=== PATIENT | male | born 1975 | race African-American/Black ===

== ENCOUNTER 2017-02-26 13:35 | Inpatient (IN) | payer OTHER ==
[2017-02-26 15:01] VITALS: BMI 32.6
--- NOTE | 2017-02-26 16:28 | HP ---
CIWA Score - CIWA Score Nausea/Vomitin-No Nausea/No Vomiting Muscle Tremors: 4-Moderate,w/Arms Extend Anxiety: 3 Agitation: 3 Paroxysmal Sweats: 1-Minimal Palms Moist Orientation: 0-Oriented Tacttile Disturbances: 0-None Auditory Disturbances: 0-None Visual Disturbances: 0-None Headache: 3-Moderate CIWA-Ar Total Score: 14 Admission ROS BHS - HPI Chief Complaint: Alcohol withdrawal sx Allergies/Adverse Reactions: Allergies Allergy/AdvReac Type Severity Reaction Status Date / Time No Known Allergies Allergy Verified 02/26/17 16:16 History of Present Illness: 41 years old with a long history of alcohol, cocaine, marijuana and nicotine dependence is admitted for detox. Patient denies past history of alcohol detox and significant history of sobriety. Patient reports medical history of GERD and depression. Denies suicidal ideation at this time. Exam Limitations: No Limitations - Ebola screening Have you traveled outside of the country in the last 21 days: No Have you had contact with anyone from an Ebola affected area: No Have you been sick,other than usual withdrawal symptoms: No Do you have a fever: No - Review of Systems Constitutional: Malaise, Changes in sleep EENT: reports: No Symptoms Reported Respiratory: reports: No Symptoms reported Cardiac: reports: No Symptoms Reported GI: reports: No Symptoms Reported, Diarrhea (x 2) : reports: No Symptoms Reported Musculoskeletal: reports: No Symptoms Reported Integumentary: reports: [place] Neuro: reports: No Symptoms reported Endocrine: reports: No Symptoms Reported Hematology: reports: No Symptoms Reported Psychiatric: reports: Orientated x3, Anxious Other Systems: Reviewed and Negative Patient History - Patient Medical History Hx Anemia: No Hx Asthma: No Hx Chronic Obstructive Pulmonary Disease (COPD): No Hx Cancer: No Hx Cardiac Disorders: No Hx Congestive Heart Failure: No Hx Hypertension: No Hx Hypercholesterolemia: No Hx Pacemaker: No HX Cerebrovascular Accident: No Hx Seizures: No Hx Dementia: No Hx Diabetes: No Hx Gastrointestinal Disorders: Yes (GERD) Hx Liver Disease: No Hx Genitourinary Disorders: No Hx Sexually Transmitted Disorders: No (Denies) Hx Renal Disease (ESRD): No Hx Thyroid Disease: No Hx Human Immunodeficiency Virus (HIV): No (Denies) Hx Hepatitis C: No (Denies) Hx Depression: Yes Hx Suicide Attempt: No Hx Bipolar Disorder: No Hx Schizophrenia: No - Patient Surgical History Past Surgical History: No - PPD History Previous Implant?: Yes Documented Results: Negative w/o proof Implanted On Prior R Admission?: No PPD to be Administered?: Yes - Reproductive History Patient is a Female of Child Bearing Age (11 -55 yrs old): No (MALE) - Smoking Cessation Smoking history: Current every day smoker Aproximately how many cigarettes per day: 20 Hx Chewing Tobacco Use: No Initiated information on smoking cessation: Yes 'Breaking Loose' booklet given: 02/26/17 - Substance & Tx. History Hx Alcohol Use: Yes Hx Substance Use: Yes Substance Use Type: Cocaine, Marijuana Hx Substance Use Treatment: No - Substances Abused Alcohol Route: Oral Frequency: Daily Amount used: 6pk beer Age of first use: 13 Date of Last Use: 02/26/17 Cocaine Route: Smoking Frequency: Daily Amount used: $50 Age of first use: 57 Date of Last Use: 02/25/17 Marijuana/Hashish Route: Smoking Frequency: Daily Amount used: $20 Age of first use: 13 Date of Last Use: 02/25/17 Family Disease History - Family Disease History Family History: Denies Admission Physical Exam [facility] - Vital Signs Vital Signs: Vital Signs - 24 hr 02/26/17 14:59 Temperature 97.2 F L Pulse Rate 99 H Respiratory 20 Rate Blood Pressure 119/68 - Physical General Appearance: Yes: Anxious HEENTM: Yes: EOMI, KARINA Respiratory: Yes: Lungs Clear, Normal Breath Sounds, No Respiratory Distress Neck: Yes: Supple Breast: Yes: Breast Exam Deferred Cardiology: Yes: Regular Rhythm, Regular Rate, S1, S2 Abdominal: Yes: Normal Bowel Sounds, Soft Genitourinary: Yes: Within Normal Limits Back: Yes: Normal Inspection Musculoskeletal: Yes: Within Normal Limits Extremities: Yes: Tremors Neurological: Yes: Fully Oriented, Alert, Normal Response Integumentary: Yes: Warm Lymphatic: Yes: Within Normal Limits - Diagnostic (1) Alcohol dependence with uncomplicated withdrawal Current Visit: Yes Status: Acute (2) Cocaine dependence, uncomplicated Current Visit: Yes Status: Acute (3) Cannabis dependence, uncomplicated Current Visit: Yes Status: Acute (4) GERD (gastroesophageal reflux disease) Current Visit: Yes Status: Chronic (5) Depression Current Visit: Yes Status: Chronic (6) Nicotine dependence Current Visit: Yes Status: Acute Cleared for Admission BHS - Detox or Rehab [facility] Level of Care: Medically Managed Detox Regimen/Protocol: Librium [facility] Breath Alcohol Content Breath Alcohol Content: 0.107 Urine Drug Screen - Results Drug Screen Negative: No Urine Drug Screen Results: THC-Marijuana, CHYNA-Cocaine, BZO-Benzodiazepines
[2017-02-26] MEDS ORDERED: MENTHOL/PHENOL 1 EACH UD MM PRN (16:36)
[2017-02-26] MEDS ORDERED: MAG HYDROX/AL HYDROX/SIMETH 30 ML UNIT-DOSE CUP PO PRN (16:36)
[2017-02-26] MEDS ORDERED: MAGNESIUM CITRATE 300 ML BOTTLE PO PRN (16:36)
[2017-02-26] MEDS ORDERED: IBUPROFEN 400 MG TABLET (FP) PO PRN (16:36)
[2017-02-26] MEDS ORDERED: guaiFENesin/D-METHORPHAN HB 10 ML UNIT-DOSE CUPS PO PRN (16:36)
[2017-02-26] MEDS ORDERED: P-EPHED 60MG/TRIPROLIDI 2.5MG TABLET PO PRN (16:36)
[2017-02-26] MEDS ORDERED: LOPERAMIDE HCL 2 MG CAPSULE PO PRN (16:36)
[2017-02-26] MEDS ORDERED: diphenhydrAMINE HCL 50 MG CAPSULE PO PRN (16:36)
[2017-02-26] MEDS ORDERED: chlordiazePOXIDE HCL 25 MG CAPSULE PO PRN (16:36)
[2017-02-26] MEDS ORDERED: MAGNESIUM HYDROX 2400MG/30ML ORAL SUSPENSION 30 ML CUP PO PRN (16:36)
[2017-02-26] MEDS ORDERED: ACETAMINOPHEN 325 MG TABLET (FP) PO PRN (16:36)
[2017-02-26] MEDS: chlordiazePOXIDE HCL 25 MG CAPSULE PO SCH ×2 (18:36→22:25)
[2017-02-26 22:11] LABS: URINE APPEARANCE CLEAR; URINE BILIRUBIN NEGATIVE (NEGATIVE); URINE BLOOD NEGATIVE (NEGATIVE); URINE COLOR STRAW; URINE GLUCOSE (UA) NEGATIVE (NEGATIVE); URINE KETONE NEGATIVE (NEGATIVE); URINE NITRITE NEGATIVE (NEGATIVE); URINE PROTEIN NEGATIVE (NEGATIVE); URINE UROBILINOGEN NEGATIVE mg/dL (0.2-1.0)
[2017-02-26] MEDS: THIAMINE HCL 100 MG TABLET (FP) PO SCH (22:25)
[2017-02-27] MEDS: chlordiazePOXIDE HCL 25 MG CAPSULE PO SCH ×4 (06:52→22:11)
[2017-02-27 09:07] LABS: URINE LEUK ESTERASE Negative (NEGATIVE)
[2017-02-27 10:07] LABS: MCH 28.9 pg (25.7-33.7); MEAN CELL VOLUME 87.5 fl (80-96); MEAN PLT VOLUME 8.6 fl (7.5-11.1); PLATELET COUNT 243 K/MM3 (134-434); RDW 15.5 % (11.9-15.9); WHITE BLOOD COUNT 6.9 K/mm3 (4.0-10.0)
[2017-02-27] MEDS: PRENATAL VITAMINS W/ FOLIC ACID TABLET (FP) PO SCH (10:07)
[2017-02-27 10:29] LABS: ALBUMIN 3.6 g/dl (3.4-5.0); ALK PHOS 104 U/L (45-117); ANION GAP 8 (8-16); BILIRUBIN,TOTAL 0.5 mg/dL (0.2-1.0); CO2 25 mmol/L (21-32); CREATININE 1.1 mg/dL (0.7-1.3); GLUCOSE,RANDOM 109 mg/dL (74-106); SGOT/AST 14 U/L (15-37); SGPT/ALT 33 U/L (12-78); TOT PROT 6.7 g/dl (6.4-8.2)
--- NOTE | 2017-02-27 12:13 | PN ---
S CIWA - CIWA Score Nausea/Vomitin-No Nausea/No Vomiting Muscle Tremors: None Anxiety: 4-Mod. Anxious/Guarded Agitation: 3 Paroxysmal Sweats: 3 Orientation: 0-Oriented Tacttile Disturbances: 3-Moderate Itch/Numb/Burn Auditory Disturbances: 0-None Visual Disturbances: 2-Mild Sensitivity Headache: 3-Moderate CIWA-Ar Total Score: 18 BHS Progress Note (SOAP) Subjective: Sweating, Diarrhea, Anxious, H/A, Fatigue. Objective: PT. A & O X 3. NO ACUTE DISTRESS. 02/27/17 12:12 Vital Signs Temperature 97.5 F L 02/27/17 09:08 Pulse Rate 69 02/27/17 09:08 Respiratory Rate 18 02/27/17 09:08 Blood Pressure 125/70 02/27/17 09:08 O2 Sat by Pulse Oximetry (%) Laboratory Tests 02/26/17 02/27/17 02/27/17 21:45 07:00 07:00 WBC 6.9 RBC 4.88 Hgb 14.1 Hct 42.7 MCV 87.5 MCH 28.9 MCHC 33.0 RDW 15.5 Plt Count 243 MPV 8.6 Sodium 139 Potassium 4.1 Chloride 106 Carbon Dioxide 25 Anion Gap 8 BUN 15 Creatinine 1.1 Creat Clearance w eGFR > 60 Random Glucose 109 H Calcium 8.0 L Total Bilirubin 0.5 AST 14 L ALT 33 Alkaline Phosphatase 104 Total Protein 6.7 Albumin 3.6 Urine Color Straw Urine Appearance Clear Urine pH 6.0 Ur Specific [place] 1.006 Urine Protein Negative Urine Glucose (UA) Negative Urine Ketones Negative Urine Blood Negative Urine Nitrite Negative Urine Bilirubin Negative Urine Urobilinogen Negative Ur Leukocyte Esterase Negative RPR Titer 02/27/17 07:00 WBC RBC Hgb Hct MCV MCH MCHC RDW Plt Count MPV Sodium Potassium Chloride Carbon Dioxide Anion Gap BUN Creatinine Creat Clearance w eGFR Random Glucose Calcium Total Bilirubin AST ALT Alkaline Phosphatase Total Protein Albumin Urine Color Urine Appearance Urine pH Ur Specific [place] Urine Protein Urine Glucose (UA) Urine Ketones Urine Blood Urine Nitrite Urine Bilirubin Urine Urobilinogen Ur Leukocyte Esterase RPR Titer Nonreactive labs noted. Assessment: 02/27/17 12:12 WITHDRAWAL SYMPTOMS. Plan: CONTINUE DETOX. INCREASE DAILY PO FLUID INTAKE.
[2017-02-27] MEDS ORDERED: BACITRACIN 0.9 GM PACKET TP ONE (20:08)
[2017-02-27] MEDS: THIAMINE HCL 100 MG TABLET (FP) PO SCH (22:11)
[2017-02-28] MEDS: chlordiazePOXIDE HCL 25 MG CAPSULE PO SCH ×2 (05:07→10:16)
[2017-02-28] MEDS: PRENATAL VITAMINS W/ FOLIC ACID TABLET (FP) PO SCH (10:17)
--- NOTE | 2017-02-28 10:58 | PN ---
[facility] CIWA - CIWA Score Nausea/Vomitin-No Nausea/No Vomiting Muscle Tremors: 4-Moderate,w/Arms Extend Anxiety: 4-Mod. Anxious/Guarded Agitation: 2 Paroxysmal Sweats: 3 Orientation: 0-Oriented Tacttile Disturbances: 2-Mild Itch/Numbness/Burn Auditory Disturbances: 1-Very Mild Visual Disturbances: 0-None Headache: 0-None Present CIWA-Ar Total Score: 16 BHS Progress Note (SOAP) Subjective: Tremors, Sweating, Interrupted Sleep. Objective: PT. A & OX 3, OBSERVED AMBULATING ON UNIT. NO ACUTE DISTRESS. 02/28/17 10:56 Vital Signs Temperature 98.8 F 02/28/17 08:51 Pulse Rate 68 02/28/17 08:51 Respiratory Rate 18 02/28/17 08:51 Blood Pressure 111/69 02/28/17 08:51 O2 Sat by Pulse Oximetry (%) Laboratory Tests 02/26/17 02/27/17 02/27/17 21:45 07:00 07:00 WBC 6.9 RBC 4.88 Hgb 14.1 Hct 42.7 MCV 87.5 MCH 28.9 MCHC 33.0 RDW 15.5 Plt Count 243 MPV 8.6 Sodium 139 Potassium 4.1 Chloride 106 Carbon Dioxide 25 Anion Gap 8 BUN 15 Creatinine 1.1 Creat Clearance w eGFR > 60 Random Glucose 109 H Calcium 8.0 L Total Bilirubin 0.5 AST 14 L ALT 33 Alkaline Phosphatase 104 Total Protein 6.7 Albumin 3.6 Urine Color Straw Urine Appearance Clear Urine pH 6.0 Ur Specific [place] 1.006 Urine Protein Negative Urine Glucose (UA) Negative Urine Ketones Negative Urine Blood Negative Urine Nitrite Negative Urine Bilirubin Negative Urine Urobilinogen Negative Ur Leukocyte Esterase Negative RPR Titer 02/27/17 07:00 WBC RBC Hgb Hct MCV MCH MCHC RDW Plt Count MPV Sodium Potassium Chloride Carbon Dioxide Anion Gap BUN Creatinine Creat Clearance w eGFR Random Glucose Calcium Total Bilirubin AST ALT Alkaline Phosphatase Total Protein Albumin Urine Color Urine Appearance Urine pH Ur Specific [place] Urine Protein Urine Glucose (UA) Urine Ketones Urine Blood Urine Nitrite Urine Bilirubin Urine Urobilinogen Ur Leukocyte Esterase RPR Titer Nonreactive LABS NOTED. Assessment: 02/28/17 10:57 WITHDRAWAL SYMPTOMS. Plan: CONTINUE DETOX.
--- NOTE | 2017-02-28 12:50 | EKG ---
Test Reason : Blood Pressure : / mmHG Vent. Rate : 089 BPM Atrial Rate : 089 BPM P-R Int : 150 ms QRS Dur : 086 ms QT Int : 378 ms P-R-T Axes : 058 065 053 degrees QTc Int : 459 ms NORMAL SINUS RHYTHM NORMAL ECG NO PREVIOUS ECGS AVAILABLE Confirmed by IRON GILLESPIE, GABI ([id number]) on 02/28/2017 12:49:59 PM Referred By: Confirmed By:GABI PERDUE MD
--- NOTE | 2017-02-28 16:09 | PN ---
[facility] Progress Note Note: Patient reporting that his current Detox symptoms are minimal and that he feels well overall. At patient's request, current Detox regimen (Librium) modified so that he may be discharged on 03/01/2017, at which time a bed will be available for him to be admitted to [facility]. Vianey Perez NP
[2017-02-28] MEDS ORDERED: chlordiazePOXIDE 5 MG CAPSULE PO SCH ×2 (17:00)
[2017-02-28] MEDS: THIAMINE HCL 100 MG TABLET (FP) PO SCH (22:14)
[2017-02-28] MEDS: chlordiazePOXIDE HCL 10 MG CAPSULE PO SCH (22:32)
[2017-03-01] MEDS: chlordiazePOXIDE HCL 10 MG CAPSULE PO SCH (06:40)
--- NOTE | 2017-03-01 08:55 | DS ---
[facility] Detox Discharge Summary Admission Date: 02/26/17 Discharge Date: 03/01/17 - History Present History: Alcohol Dependence, Cannabis Dependence, Cocaine Dependence Additional Comments: DETOX COMPLETED.ALERT O X 3. NAD. Pertinent Past History: GERD DEPRESSION - Physical Exam Results Vital Signs: Vital Signs Temperature 97.5 F L 03/01/17 05:52 Pulse Rate 55 L 03/01/17 05:52 Respiratory Rate 18 03/01/17 05:52 Blood Pressure 90/60 03/01/17 05:52 O2 Sat by Pulse Oximetry (%) Pertinent Admission Physical Exam Findings: WITHDRAWAL Laboratory Last Values WBC 6.9 K/mm3 (4.0-10.0) 02/27/17 07:00 RBC 4.88 M/mm3 (4.00-5.60) 02/27/17 07:00 Hgb 14.1 GM/dL (11.7-16.9) 02/27/17 07:00 Hct 42.7 % (35.4-49) 02/27/17 07:00 MCV 87.5 fl (80-96) 02/27/17 07:00 MCH 28.9 pg (25.7-33.7) 02/27/17 07:00 MCHC 33.0 g/dl (32.0-35.9) 02/27/17 07:00 RDW 15.5 % (11.9-15.9) 02/27/17 07:00 Plt Count 243 K/MM3 (134-434) 02/27/17 07:00 MPV 8.6 fl (7.5-11.1) 02/27/17 07:00 Sodium 139 mmol/L (136-145) 02/27/17 07:00 Potassium 4.1 mmol/L (3.5-5.1) 02/27/17 07:00 Chloride 106 mmol/L (98-107) 02/27/17 07:00 Carbon Dioxide 25 mmol/L (21-32) 02/27/17 07:00 Anion Gap 8 (8-16) 02/27/17 07:00 BUN 15 mg/dL (7-18) 02/27/17 07:00 Creatinine 1.1 mg/dL (0.7-1.3) 02/27/17 07:00 Creat Clearance w eGFR > 60 (>60) 02/27/17 07:00 Random Glucose 109 mg/dL (74-106) H 02/27/17 07:00 Calcium 8.0 mg/dL (8.5-10.1) L 02/27/17 07:00 Total Bilirubin 0.5 mg/dL (0.2-1.0) 02/27/17 07:00 AST 14 U/L (15-37) L 02/27/17 07:00 ALT 33 U/L (12-78) 02/27/17 07:00 Alkaline Phosphatase 104 U/L (45-117) 02/27/17 07:00 Total Protein 6.7 g/dl (6.4-8.2) 02/27/17 07:00 Albumin 3.6 g/dl (3.4-5.0) 02/27/17 07:00 Urine Color Straw 02/26/17 21:45 Urine Appearance Clear 02/26/17 21:45 Urine pH 6.0 (5.0-8.0) 02/26/17 21:45 Ur Specific [place] 1.006 (1.001-1.035) 02/26/17 21:45 Urine Protein Negative (NEGATIVE) 02/26/17 21:45 Urine Glucose (UA) Negative (NEGATIVE) 02/26/17 21:45 Urine Ketones Negative (NEGATIVE) 02/26/17 21:45 Urine Blood Negative (NEGATIVE) 02/26/17 21:45 Urine Nitrite Negative (NEGATIVE) 02/26/17 21:45 Urine Bilirubin Negative (NEGATIVE) 02/26/17 21:45 Urine Urobilinogen Negative mg/dL (0.2-1.0) 02/26/17 21:45 Ur Leukocyte Esterase Negative (NEGATIVE) 02/26/17 21:45 RPR Titer Nonreactive (NONREACTIVE) 02/27/17 07:00 - Treatment Hospital Course: Detox Protocol Followed, Detoxed Safely, Responded well, Discharged Condition Good, Rehab Referral Accepted Patient has Accepted a Rehab Referral to: [facility] - Medication Discharge Medications: Ambulatory Orders NK [No Known Home Medication] 02/26/17 - Diagnosis (1) Alcohol dependence with uncomplicated withdrawal Current Visit: Yes Status: Acute (2) Cannabis dependence, uncomplicated Current Visit: Yes Status: Acute (3) Cocaine dependence, uncomplicated Current Visit: Yes Status: Acute (4) Nicotine dependence Current Visit: Yes Status: Acute Qualifiers: Nicotine product type: cigarettes Substance use status: in withdrawal Qualified Code(s): F17.213 - Nicotine dependence, cigarettes, with withdrawal; F17.213 - Nicotine dependence, cigarettes, with withdrawal (5) GERD (gastroesophageal reflux disease) Current Visit: Yes Status: Chronic Qualifiers: Esophagitis presence: esophagitis presence not specified Qualified Code(s): K21.9 - Gastro-esophageal reflux disease without esophagitis; K21.9 - Gastro-esophageal reflux disease without esophagitis; K21.9 - Gastro-esophageal reflux disease without esophagitis - AMA Did Patient Leave Against Medical Advice: No
[2017-03-01 09:12] VITALS: BP 117/68; PULSE 76; TEMP 96.8
[2017-03-01] MEDS: PRENATAL VITAMINS W/ FOLIC ACID TABLET (FP) PO SCH (10:11)
[2017-03-01] MEDS ORDERED: chlordiazePOXIDE HCL 10 MG CAPSULE PO SCH ×2 (17:00→23:00)
== END 2017-03-01 15:28 | disposition other institution (70) | DRG 774 ==
LOC: YASAS 13:35 → Y3N 17:25
PROVIDERS: ADMIT Internal Medicine; ATTEND Internal Medicine
PROC: HZ2ZZZZ Detoxification Services for Substance Abuse Treatment (ICD-10-PCS; principal; 2017-02-26)
DX: F10.230 Alcohol dependence with withdrawal, uncomplicated (principal); F14.20 Cocaine dependence, uncomplicated; F12.20 Cannabis dependence, uncomplicated; F17.213 Nicotine dependence, cigarettes, with withdrawal; F32.9 Major depressive disorder, single episode, unspecified; K21.9 Gastro-esophageal reflux disease without esophagitis
CPT/HCPCS: 36415; 71020-TC; 80053; 81003; 85027; 86593; 93005; 93010

== ENCOUNTER 2019-05-24 09:13 | Inpatient (IN) | payer OTHER ==
[2019-05-24 09:34] VITALS: BMI 27.1
--- NOTE | 2019-05-24 10:16 | HP ---
CIWA Score Nausea/Vomitin Muscle Tremors: 3 Anxiety: 3 Agitation: 2 Paroxysmal Sweats: 3 Orientation: 0-Oriented Tacttile Disturbances: 1-Very Mild Itch/Numbness Auditory Disturbances: 1-Very Mild Visual Disturbances: 1-Very Mild Sensitivity Headache: 2-Mild CIWA-Ar Total Score: 18 - Admission Criteria [facility]ASAS Guidelines: Admission for Medically Managed Detox: Requires at least one of the followin. CIWA greater than 12 2. Seizures within the past 24 hours 3. Delirium tremens within the past 24 hours 4. Hallucinations within the past 24 hours 5. Acute intervention needed for co occurring medical disorder 6. Acute intervention needed for co occurring psychiatric disorder 7. Severe withdrawal that cannot be handled at a lower level of care (continued vomiting, continued diarrhea, abnormal vital signs) requiring intravenous medication and/or fluids 8. Patient presents the following: CIWA greater than 12 Admission Criteria Met: Admission criteria met Admitting History and Physical - Smoking History Smoking history: Never smoked Have you smoked in the past 12 months: No Aproximately how many cigarettes per day: 20 - Alcohol/Substance Use Hx Alcohol Use: Yes Admission ROS S - HPI Chief Complaint: I need to stop drinking and using, I need detox Allergies/Adverse Reactions: Allergies Allergy/AdvReac Type Severity Reaction Status Date / Time No Known Allergies Allergy Verified 05/24/19 09:25 History of Present Illness: Patient is a 41 years old man with long history of alcohol dependence, cocaine, marijuana and nicotine dependence who presents for detox. His last detox was in 2017, he denies seizure or blackouts related to alcohol. Exam Limitations: No Limitations - Ebola screening Have you traveled outside of the country in the last 21 days: No (N) Have you had contact with anyone from an Ebola affected area: No Have you been sick,other than usual withdrawal symptoms: No Do you have a fever: No - Review of Systems Constitutional: Chills, Diaphoresis, Loss of Appetite, Changes in sleep, Weakness, Weight Stable EENT: reports: Nose Congestion Respiratory: reports: Cough Cardiac: reports: Chest Pain (sometimes) GI: reports: Nausea, Poor Appetite, Poor Fluid Intake, Abdominal cramping : reports: Urgency (sometimes) Musculoskeletal: reports: Back Pain, Joint Pain, Muscle Pain, Muscle Weakness Integumentary: reports: Sweating Neuro: reports: Headache, Numbness, Tingling, Tremors, Weakness Endocrine: reports: No Symptoms Reported Hematology: reports: No Symptoms Reported Psychiatric: reports: Orientated x3, Depressed Other Systems: Reviewed and Negative Patient History - Patient Medical History Hx Anemia: No Hx Asthma: No Hx Chronic Obstructive Pulmonary Disease (COPD): No Hx Cancer: No Hx Cardiac Disorders: No Hx Congestive Heart Failure: No Hx Hypertension: No Hx Hypercholesterolemia: No Hx Pacemaker: No HX Cerebrovascular Accident: No Hx Seizures: No Hx Dementia: No Hx Diabetes: No Hx Gastrointestinal Disorders: No Hx Liver Disease: No Hx Genitourinary Disorders: No Hx Sexually Transmitted Disorders: No Hx Renal Disease (ESRD): No Hx Thyroid Disease: No Hx Human Immunodeficiency Virus (HIV): No Hx Hepatitis C: No Hx Depression: Yes (on medication) Hx Suicide Attempt: No Hx Bipolar Disorder: No Hx Schizophrenia: No - Patient Surgical History Past Surgical History: Yes Hx Neurologic Surgery: No Hx Cataract Extraction: No Hx Cardiac Surgery: No Hx Lung Surgery: No Hx Breast Surgery: No Hx Breast Biopsy: No Hx Abdominal Surgery: No Hx Appendectomy: No Hx Cholecystectomy: No Hx Genitourinary Surgery: No Hx Section: No Hx Orthopedic Surgery: Yes (right ankle fracture repair) Anesthesia Reaction: No - PPD History Previous Implant?: No Documented Results: Positive w/o proof Implanted On Prior R Admission?: No PPD to be Administered?: No - Smoking Cessation Smoking history: Current every day smoker Have you smoked in the past 12 months: Yes Aproximately how many cigarettes per day: 10 Hx Chewing Tobacco Use: No Initiated information on smoking cessation: Yes 'Breaking Loose' booklet given: 05/24/19 - Substances abused Alcohol Substance route: Oral Frequency: Daily Amount used: 1pint vodka Age of first use: 33 Date of last use: 05/23/19 Heroin Substance route: Inhalation Frequency: 1-3 times last 30 days Amount used: 1 bag Age of first use: 44 Date of last use: 05/24/19 Cocaine Substance route: Oral Frequency: 3-6 times per week Amount used: $40 Age of first use: 41 Date of last use: 05/24/19 Admission Physical Exam BHS - Vital Signs Vital Signs: Vital Signs - 24 hr 05/24/19 09:29 Temperature 97.9 F Pulse Rate 95 H Respiratory 16 Rate Blood Pressure 111/63 - Physical General Appearance: Yes: No Apparent Distress HEENTM: Yes: Hearing grossly Normal, Normocephalic, Normal Voice, KARINA Respiratory: Yes: Chest Non-Tender, Lungs Clear, Normal Breath Sounds, No Respiratory Distress, No Accessory Muscle Use Neck: Yes: No masses,lesions,Nodules, Supple Breast: Yes: Breast Exam Deferred Cardiology: Yes: Regular Rhythm, Regular Rate, S1, S2 Abdominal: Yes: Normal Bowel Sounds, Non Tender, Protuberent (mild) Genitourinary: Yes: Within Normal Limits Back: Yes: Normal Inspection Musculoskeletal: Yes: full range of Motion, Gait Steady, Pelvis Stable, Back pain, Muscle weakness Extremities: Yes: Normal Range of Motion, Tremors, Coldness Neurological: Yes: vice president investor relations II-XII NML intact, Fully Oriented, Alert, Motor Strength 5/5, Normal Mood/Affect, Normal Response Integumentary: Yes: Normal Color, Clammy Lymphatic: Yes: Within Normal Limits - Diagnostic (1) Alcohol dependence with uncomplicated withdrawal Current Visit: Yes Status: Acute (2) Cocaine dependence Current Visit: Yes Status: Acute Qualifiers: Substance use status: uncomplicated Qualified Code(s): F14.20 - Cocaine dependence, uncomplicated (3) Nicotine dependence Current Visit: Yes Status: Acute Qualifiers: Nicotine product type: cigarettes Substance use status: uncomplicated Qualified Code(s): F17.210 - Nicotine dependence, cigarettes, uncomplicated Cleared for Admission S - Detox or Rehab [facility] Level of Care: Medically Managed Detox Regimen/Protocol: Librium Claeared for Rehab Admission: No Breathalyzer - Breathalyzer Breathalyzer: 0 Urine Drug Screen - Test Device Lot number: [id number] Expiration date: 11/27/20 - Control Is test valid?: Yes - Results Drug screen NEGATIVE: No Urine drug screen results: CHYNA-Cocaine, BZO-Benzodiazepines Inpatient Rehab Admission - Rehab Decision to Admit Inpatient rehab admission?: No
[2019-05-24] MEDS ORDERED: BISMUTH SUBSALICYLATE 524 MG/30 ML UD PO PRN (10:22)
[2019-05-24] MEDS ORDERED: IBUPROFEN 400 MG TABLET (FP) PO PRN (10:22)
[2019-05-24] MEDS ORDERED: MAGNESIUM HYDROX 2400MG/30ML ORAL SUSPENSION 30 ML CUP PO PRN (10:22)
[2019-05-24] MEDS ORDERED: MELATONIN 5 MG TABLETS PO PRN (10:22)
[2019-05-24] MEDS ORDERED: MAG HYDROX/AL HYDROX/SIMETH 30 ML UNIT-DOSE CUP PO PRN (10:22)
[2019-05-24] MEDS ORDERED: METHOCARBAMOL 500 MG TABLET PO PRN (10:22)
[2019-05-24] MEDS ORDERED: NICOTINE POLACRILEX 2 MG GUM BUC PRN (10:22)
[2019-05-24] MEDS ORDERED: MAGNESIUM CITRATE 300 ML BOTTLE PO PRN (10:22)
[2019-05-24] MEDS ORDERED: ACETAMINOPHEN 325 MG TABLET (FP) PO PRN ×2 (10:22)
[2019-05-24] MEDS ORDERED: MENTHOL/PHENOL 1 EACH UD MM PRN (10:22)
[2019-05-24] MEDS ORDERED: hydrOXYzine PAMOATE 25 MG CAPSULE (FP) PO PRN (10:22)
[2019-05-24] MEDS ORDERED: chlordiazePOXIDE HCL 10 MG CAPSULE PO PRN (10:22)
[2019-05-24] MEDS ORDERED: ONDANSETRON *ODT* 4 MG TABLET SL PRN (10:22)
[2019-05-24] MEDS ORDERED: P-EPHED 60MG/TRIPROLIDI 2.5MG TABLET PO PRN (10:22)
[2019-05-24] MEDS: NICOTINE 14 MG/24 HOURS TOPICAL PATCH TD SCH (11:40)
[2019-05-24] MEDS: chlordiazePOXIDE HCL 25 MG CAPSULE PO SCH ×2 (14:00→22:46)
[2019-05-24] MEDS ORDERED: QUEtiapine FUMARATE 100 MG TABLET (FP) PO PRN (22:00)
[2019-05-24] MEDS: THIAMINE HCL 100 MG TABLET (FP) PO SCH (22:46)
[2019-05-25] MEDS: chlordiazePOXIDE HCL 25 MG CAPSULE PO SCH ×3 (06:45→22:03)
[2019-05-25] MEDS: PRENATAL VITAMINS W/ FOLIC ACID TABLET (FP) PO SCH (09:13)
[2019-05-25] MEDS: NICOTINE 14 MG/24 HOURS TOPICAL PATCH TD SCH (09:13)
--- NOTE | 2019-05-25 10:50 | CONSULT ---
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 Refer to addiction counselor's summary for further information Medical History: Significant for GERD and history of orthosurgery for fracture right ankle in 2016. Smokes cigarettes 1ppd Psychiatric History: Reports that his first psychiatric treatment occured two months ago when he was admitted to [facility], diagnosed with MDD and prescribed Seroquel and Zoloft. reports that after discharge he was referred to outpatient mental health of the same institution where he is currently seeing a psychiatrist. He is currently prescribed Zoloft 100 mg/day and Seroquel 100 mg/hs. Denies previous suicidal attempt. At present, reports feeling aggravated and sleeping poorly Physical/Sexual Abuse/Trauma History: Denies history of abuse as a child or DV relationship as an adult Mental Status Exam - Mental Status Exam Alert and Oriented to: Time, Place, Person Cognitive Function: Fair Patient Appearance: Disheveled Mood: Angry, Hostile Affect: Appropriate Patient Behavior: Cooperative Speech Pattern: Clear Voice Loudness: Normal Thought Process: Intact, Goal Oriented Hallucinations: Denies Suicidal Ideation: Denies Homicidal Ideation: Denies Insight/Judgement: Poor Sleep: Poorly Appetite: Fair Muscle strength/Tone: Normal Gait/Station: Normal Psychiatric Findings - Problem List ([place] 1, 2,3) (1) Depressive disorder Current Visit: Yes Status: Chronic (2) MDD (major depressive disorder) Current Visit: Yes Status: Ruled-out (3) Substance induced mood disorder Current Visit: Yes Status: Acute (4) Substance-induced sleep disorder Current Visit: No Status: Acute (5) Alcohol dependence with uncomplicated withdrawal Current Visit: Yes Status: Acute (6) Cocaine dependence Current Visit: Yes Status: Acute Qualifiers: Substance use status: uncomplicated Qualified Code(s): F14.20 - Cocaine dependence, uncomplicated (7) Cannabis dependence Current Visit: No Status: Acute (8) Nicotine dependence Current Visit: Yes Status: Chronic Qualifiers: Nicotine product type: cigarettes Substance use status: uncomplicated Qualified Code(s): F17.210 - Nicotine dependence, cigarettes, uncomplicated (9) GERD (gastroesophageal reflux disease) Current Visit: No Status: Chronic Qualifiers: Esophagitis presence: esophagitis presence not specified Qualified Code(s) : K21.9 - Gastro-esophageal reflux disease without esophagitis (10) PPD positive Current Visit: Yes Status: Chronic - Initial Treatment Plan Initial Treatment Plan: 1) Continue Zoloft 100 mg po daily and Seroquel 100 mg po HS. 2) Continue inpatient detoxification
[2019-05-25] MEDS: SERTRALINE HCL 50 MG TABLET (FP) PO SCH (14:51)
--- NOTE | 2019-05-25 14:52 | PN ---
S CIWA - CIWA Score Nausea/Vomitin-Mild Nausea/No Vomiting Muscle Tremors: 2 Anxiety: 3 Agitation: 3 Paroxysmal Sweats: 3 Orientation: 0-Oriented Tacttile Disturbances: 0-None Auditory Disturbances: 0-None Visual Disturbances: 0-None Headache: 0-None Present CIWA-Ar Total Score: 12 S Progress Note (SOAP) Subjective: Interrupted sleep Objective: 05/25/19 14:47 Last Vital Signs Temp Pulse Resp BP Pulse Ox 97.3 F L 73 16 122/67 05/25/19 14:32 05/25/19 14:32 05/25/19 14:32 05/25/19 14:32 No admission lab result available (patient refused, will reorder in AM) Assessment: 05/25/19 14:53 Withdrawal sxs Plan: Continue detox Encouraged PO water intake Admission labs reordered (CBC, CMP, RPR, UA)
[2019-05-25] MEDS: THIAMINE HCL 100 MG TABLET (FP) PO SCH (22:03)
[2019-05-25] MEDS: QUEtiapine FUMARATE 100 MG TABLET (FP) PO SCH (22:03)
[2019-05-26] MEDS: chlordiazePOXIDE 5 MG CAPSULE PO SCH ×3 (06:50→22:00)
[2019-05-26] MEDS: SERTRALINE HCL 50 MG TABLET (FP) PO SCH (10:30)
[2019-05-26] MEDS: PRENATAL VITAMINS W/ FOLIC ACID TABLET (FP) PO SCH (10:30)
[2019-05-26] MEDS: NICOTINE 14 MG/24 HOURS TOPICAL PATCH TD SCH (10:30)
--- NOTE | 2019-05-26 11:33 | PN ---
[facility] CIWA - CIWA Score Nausea/Vomitin-Mild Nausea/No Vomiting Muscle Tremors: 2 Anxiety: 1-Mildly Anxious Agitation: 1-Slight > Activity Paroxysmal Sweats: 1-Minimal Palms Moist Orientation: 3-Disoriented Date>2 days Tacttile Disturbances: 2-Mild Itch/Numbness/Burn Auditory Disturbances: 0-None Visual Disturbances: 0-None Headache: 0-None Present CIWA-Ar Total Score: 11 BHS Progress Note (SOAP) Subjective: Complains of nausea, no vomiting. Feels sweaty and anxious, fingertip paresthesias Objective: 05/26/19 11:30 Vital Signs Temperature 97.9 F 05/26/19 09:38 Pulse Rate 80 05/26/19 09:38 Respiratory Rate 18 05/26/19 09:38 Blood Pressure 113/62 05/26/19 09:38 O2 Sat by Pulse Oximetry (%) Gnl: WDWN, in no distress MS: awake, alert, attentive, nl language, cooperative Motor: ambulating well, steady gait Assessment: 05/26/19 11:30 1. Alcohol withdrawal 2. tobacco dependence 3. cocaine use disorder 05/26/19 11:34 Plan: 1. Alcohol withdrawal protocol 2. pt had refused routine labs, labs reordered/results pending
[2019-05-26 12:14] LABS: PH,URINE 6.5 (5.0-8.0); URINE APPEARANCE CLEAR; URINE BILIRUBIN NEGATIVE (NEGATIVE); URINE COLOR YELLOW; URINE GLUCOSE (UA) NEGATIVE (NEGATIVE); URINE KETONE NEGATIVE (NEGATIVE); URINE LEUK ESTERASE NEGATIVE (NEGATIVE); URINE NITRITE NEGATIVE (NEGATIVE); URINE PROTEIN NEGATIVE (NEGATIVE); URINE UROBILINOGEN 0.2 mg/dL (0.2-1.0)
[2019-05-26 14:10] LABS: BASO % 0.9 % (0-2.0); EOS % 0.7 % (0-4.5); HEMATOCRIT 44.9 % (35.4-49); HEMOGLOBIN 14.9 GM/dL (11.7-16.9); LYMPH % 30.4 % (8-40); MCH 29.2 pg (25.7-33.7); MCHC 33.1 g/dl (32.0-35.9); MEAN CELL VOLUME 88.4 fl (80-96); MEAN PLT VOLUME 8.7 fl (7.5-11.1); MONO % 9.3 % (3.8-10.2); NEUT % 58.7 % (42.8-82.8); PLATELET COUNT 242 K/MM3 (134-434); RBC 5.08 M/mm3 (4.00-5.60); RDW 14.6 % (11.9-15.9); WHITE BLOOD COUNT 6.4 K/mm3 (4.0-10.0)
[2019-05-26 14:20] LABS: ALBUMIN 3.6 g/dl (3.4-5.0); BILIRUBIN,TOTAL 0.3 mg/dL (0.2-1); BLOOD UREA NITROGEN 12.4 mg/dL (7-18); CALCIUM 8.5 mg/dL (8.5-10.1); CREATININE 1.1 mg/dL (0.55-1.3); POTASSIUM 4.1 mmol/L (3.5-5.1); TOT PROT 6.8 g/dl (6.4-8.2)
[2019-05-26] MEDS: QUEtiapine FUMARATE 100 MG TABLET (FP) PO SCH (22:00)
[2019-05-26] MEDS: THIAMINE HCL 100 MG TABLET (FP) PO SCH (22:00)
[2019-05-27] MEDS ORDERED: chlordiazePOXIDE HCL 10 MG CAPSULE PO PRN
[2019-05-27] MEDS ORDERED: chlordiazePOXIDE HCL 10 MG CAPSULE PO SCH (05:00)
[2019-05-27] MEDS: NICOTINE 14 MG/24 HOURS TOPICAL PATCH TD SCH (09:58)
[2019-05-27] MEDS: PRENATAL VITAMINS W/ FOLIC ACID TABLET (FP) PO SCH (09:58)
[2019-05-27] MEDS: SERTRALINE HCL 50 MG TABLET (FP) PO SCH (09:58)
--- NOTE | 2019-05-27 10:43 | DS ---
[facility] Detox Discharge Summary Admission Date: 05/24/19 Discharge Date: 05/27/19 - History Present History: Alcohol Dependence, Cannabis Dependence, Cocaine Dependence - Physical Exam Results Vital Signs: Vital Signs Temperature 96.5 F L 05/27/19 09:20 Pulse Rate 16 L 05/27/19 09:20 Respiratory Rate 84 H 05/27/19 09:20 Blood Pressure 148/79 05/27/19 09:20 O2 Sat by Pulse Oximetry (%) Pertinent Admission Physical Exam Findings: Vital Signs Temperature 96.5 F L 05/27/19 09:20 Pulse Rate 16 L 05/27/19 09:20 Respiratory Rate 84 H 05/27/19 09:20 Blood Pressure 148/79 05/27/19 09:20 O2 Sat by Pulse Oximetry (%) Laboratory Tests 05/26/19 05/26/19 05/26/19 08:00 10:00 10:00 WBC 6.4 RBC 5.08 Hgb 14.9 Hct 44.9 MCV 88.4 MCH 29.2 MCHC 33.1 RDW 14.6 Plt Count 242 MPV 8.7 Absolute Neuts (auto) 3.8 Neutrophils % 58.7 Lymphocytes % 30.4 Monocytes % 9.3 Eosinophils % 0.7 Basophils % 0.9 Nucleated RBC % 0 Sodium 140 Potassium 4.1 Chloride 108 H Carbon Dioxide 26 Anion Gap 6 L BUN 12.4 Creatinine 1.1 Est GFR (CKD-EPI)AfAm 92.81 Est GFR (CKD-EPI)NonAf 80.08 Random Glucose 106 Calcium 8.5 Total Bilirubin 0.3 AST 20 ALT 44 Alkaline Phosphatase 81 Total Protein 6.8 Albumin 3.6 Urine Color Yellow Urine Appearance Clear Urine pH 6.5 Ur Specific [place] 1.010 Urine Protein Negative Urine Glucose (UA) Negative Urine Ketones Negative Urine Blood Negative Urine Nitrite Negative Urine Bilirubin Negative Urine Urobilinogen 0.2 Ur Leukocyte Esterase Negative RPR Titer HIV 1&2 Antibody Screen HIV P24 Antigen 05/26/19 05/26/19 10:00 10:00 WBC RBC Hgb Hct MCV MCH MCHC RDW Plt Count MPV Absolute Neuts (auto) Neutrophils % Lymphocytes % Monocytes % Eosinophils % Basophils % Nucleated RBC % Sodium Potassium Chloride Carbon Dioxide Anion Gap BUN Creatinine Est GFR (CKD-EPI)AfAm Est GFR (CKD-EPI)NonAf Random Glucose Calcium Total Bilirubin AST ALT Alkaline Phosphatase Total Protein Albumin Urine Color Urine Appearance Urine pH Ur Specific [place] Urine Protein Urine Glucose (UA) Urine Ketones Urine Blood Urine Nitrite Urine Bilirubin Urine Urobilinogen Ur Leukocyte Esterase RPR Titer Nonreactive HIV 1&2 Antibody Screen Negative HIV P24 Antigen Negative aaox3 ambulating no acute distress - Treatment Hospital Course: Detox Protocol Followed, Detoxed Safely, Responded well, Discharged Condition Good, Rehab Referral Accepted Patient has Accepted a Rehab Referral to: referred to [facility] inpatient rehab - Medication Discharge Medications: Ambulatory Orders Quetiapine Fumarate [Seroquel -] 100 mg PO HS 05/24/19 Sertraline HCl [Zoloft] 100 mg PO DAILY 05/24/19 - Diagnosis (1) Alcohol dependence with uncomplicated withdrawal Current Visit: Yes Status: Chronic (2) Cocaine dependence Current Visit: Yes Status: Chronic Qualifiers: Substance use status: uncomplicated Qualified Code(s): F14.20 - Cocaine dependence, uncomplicated (3) Substance induced mood disorder Current Visit: Yes Status: Acute (4) Depressive disorder Current Visit: Yes Status: Chronic (5) Nicotine dependence Current Visit: Yes Status: Chronic Qualifiers: Nicotine product type: cigarettes Substance use status: uncomplicated Qualified Code(s): F17.210 - Nicotine dependence, cigarettes, uncomplicated (6) PPD positive Current Visit: Yes Status: Chronic (7) MDD (major depressive disorder) Current Visit: Yes Status: Ruled-out (8) Cannabis dependence Current Visit: No Status: Acute (9) Substance induced mood disorder Current Visit: No Status: Acute (10) Substance-induced sleep disorder Current Visit: No Status: Acute (11) Depression Current Visit: No Status: Chronic Qualifiers: Depression Type: unspecified Qualified Code(s): F32.9 - Major depressive disorder, single episode, unspecified (12) GERD (gastroesophageal reflux disease) Current Visit: Yes Status: Chronic Qualifiers: Esophagitis presence: without esophagitis Qualified Code(s): K21.9 - Gastro -esophageal reflux disease without esophagitis - AMA Did Patient Leave Against Medical Advice: No
[2019-05-27 14:43] VITALS: BP 137/57; PULSE 83; TEMP 98.1
[2019-05-28] MEDS ORDERED: chlordiazePOXIDE HCL 10 MG CAPSULE PO ONE (05:00)
== END 2019-05-27 16:53 | disposition other institution (70) | DRG 774 ==
LOC: YASAS 09:13 → Y6N 10:30
PROVIDERS: ADMIT Allergy & Immunology; ATTEND Allergy & Immunology
PROC: HZ2ZZZZ Detoxification Services for Substance Abuse Treatment (ICD-10-PCS; principal; 2019-05-24)
DX: F10.230 Alcohol dependence with withdrawal, uncomplicated (principal); F14.20 Cocaine dependence, uncomplicated; F12.20 Cannabis dependence, uncomplicated; F17.210 Nicotine dependence, cigarettes, uncomplicated; F19.24 Other psychoactive substance dependence with psychoactive substance-induced mood disorder; F19.282 Other psychoactive substance dependence with psychoactive substance-induced sleep disorder; F32.9 Major depressive disorder, single episode, unspecified; R76.11 Nonspecific reaction to tuberculin skin test without active tuberculosis; K21.9 Gastro-esophageal reflux disease without esophagitis
CPT/HCPCS: 36415; 71046-TC-FY; 80053; 81003; 85025; 86593; 87389

== ENCOUNTER 2019-05-27 17:13 | Inpatient (IN) | payer OTHER ==
--- NOTE | 2019-05-27 12:10 | HP ---
[facility] Rehab Assess/Revision - Admission History Admitted to Rehab from: [facility] - Findings Detox History & Physical reviewed: Yes Concur with findings: Yes Inpatient Rehab Admission - Rehab Decision to Admit Inpatient rehab admission?: Yes - Initial Determination Are CD services needed?: Yes Free of communicable disease: Yes Not in need of hospitalization: Yes - Rehab Admission Criteria Previous failed treatment: Yes Poor recovery environment: Yes Comorbidities: Yes Lacks judgement: Yes Patient is meeting Inpatient Rehab admission criteria:: Yes
[2019-05-27] MEDS ORDERED: MAGNESIUM CITRATE 300 ML BOTTLE PO PRN (17:55)
[2019-05-27] MEDS ORDERED: ACETAMINOPHEN 325 MG TABLET (FP) PO PRN (17:55)
[2019-05-27] MEDS ORDERED: LOPERAMIDE HCL 2 MG CAPSULE PO PRN (17:55)
[2019-05-27] MEDS ORDERED: guaiFENesin 200 MG/10 ML 10 ML UNIT-DOSE CUPS PO PRN (17:55)
[2019-05-27] MEDS ORDERED: MAG HYDROX/AL HYDROX/SIMETH 30 ML UNIT-DOSE CUP PO PRN (17:55)
[2019-05-27] MEDS ORDERED: MENTHOL/PHENOL 1 EACH UD MM PRN (17:55)
[2019-05-27] MEDS ORDERED: P-EPHED 60MG/TRIPROLIDI 2.5MG TABLET PO PRN (17:55)
[2019-05-27] MEDS ORDERED: MAGNESIUM HYDROX 2400MG/30ML ORAL SUSPENSION 30 ML CUP PO PRN (17:55)
--- NOTE | 2019-05-27 17:55 | PN ---
[facility] Progress Note Note: call from nursing - pt transferred today from detox to rehab , no orders . Rehab orders entered.
[2019-05-27] MEDS ORDERED: QUEtiapine FUMARATE 100 MG TABLET (FP) PO ONE (21:00)
[2019-05-27] MEDS: THIAMINE HCL 100 MG TABLET (FP) PO SCH (21:22)
[2019-05-27] MEDS ORDERED: MELATONIN 5 MG TABLETS PO PRN (22:00)
[2019-05-28] MEDS: PRENATAL VITAMINS W/ FOLIC ACID TABLET (FP) PO SCH (10:29)
--- NOTE | 2019-05-28 10:50 | PN ---
[facility] Progress Note Note: Patient was seen by conventional underwriter on 05/25/19 while admitted to detox and he was prescribed Zoloft 100 mg/day and Seroquel 100 mg/hs. Continue both medications
[2019-05-28] MEDS: SERTRALINE HCL 50 MG TABLET (FP) PO SCH (11:21)
--- NOTE | 2019-05-28 18:28 | PN ---
[facility] Progress Note Note: pt c/o itching on palms of hands after taking a shower . denies any other complaints " I feel great " O : aaron palms w/ superficial descuamation , no d/c P : topical ointment , Aveeno soap Vital Signs - 24 hr 05/28/19 05/28/19 05/28/19 00:30 03:30 06:46 Temperature 98.1 F Pulse Rate 64 Respiratory 20 20 20 Rate Blood Pressure 118/64
[2019-05-28] MEDS: THIAMINE HCL 100 MG TABLET (FP) PO SCH (21:30)
[2019-05-28] MEDS: QUEtiapine FUMARATE 100 MG TABLET (FP) PO SCH (21:31)
[2019-05-28] MEDS: HYDROCORTISONE 1% TOPICAL OINT 30 GM TUBE TP PRN (21:31)
[2019-05-29] MEDS: SERTRALINE HCL 50 MG TABLET (FP) PO SCH (10:24)
[2019-05-29] MEDS: PRENATAL VITAMINS W/ FOLIC ACID TABLET (FP) PO SCH (10:24)
[2019-05-29] MEDS: HYDROCORTISONE 1% TOPICAL OINT 30 GM TUBE TP PRN (10:25)
--- NOTE | 2019-05-29 12:29 | PN ---
[facility] Progress Note Note: Pt is a 44 y/o male with a hx of МАРИНА-alcohol,cocaine admitted to rehab from detox [address] [place] [address] on 05/27/19. Pt requesting to review labs done in detox and wants Hep C screening done while in rehab. PMHx: denies; Psych Hx: Depression. Surgical Hx:Right ankle Fx repair. Vital Signs - 24 hr 05/29/19 05/29/19 05/29/19 00:30 03:30 07:04 Respiratory 18 18 18 Rate Alert o x3,denies s/h/i nad oob ambulating with steady gait extremities/skin;dry, scaly feet and warm; Right heel with surgical scar(s/p ankle fx 2019); skin intact. A/P МАРИНА new rehab pt s/p detox maintain safety Labs reviewed with [id number], CMP grossly nl, Serology Negative for HIV and RPR Nonreactive. HCV Diagnostic ordered. Eucerin cream
[2019-05-29] MEDS: MINERAL OIL/PETROLAT/WATER TOPICAL CREAM 113 GM JAR TP SCH (14:38)
[2019-05-29] MEDS: THIAMINE HCL 100 MG TABLET (FP) PO SCH (21:37)
[2019-05-29] MEDS: QUEtiapine FUMARATE 100 MG TABLET (FP) PO SCH (21:37)
[2019-05-30] MEDS: SERTRALINE HCL 50 MG TABLET (FP) PO SCH (10:25)
[2019-05-30] MEDS: COLLOIDAL OATMEAL 1 BAR EACH TP PRN (10:25)
[2019-05-30] MEDS: PRENATAL VITAMINS W/ FOLIC ACID TABLET (FP) PO SCH (10:25)
[2019-05-30] MEDS: MINERAL OIL/PETROLAT/WATER TOPICAL CREAM 113 GM JAR TP SCH (10:26)
[2019-05-30] MEDS: HYDROCORTISONE 1% TOPICAL OINT 30 GM TUBE TP PRN (10:26)
[2019-05-30] MEDS: QUEtiapine FUMARATE 100 MG TABLET (FP) PO SCH (21:41)
[2019-05-30] MEDS: THIAMINE HCL 100 MG TABLET (FP) PO SCH (21:41)
[2019-05-31] MEDS: PRENATAL VITAMINS W/ FOLIC ACID TABLET (FP) PO SCH (10:01)
[2019-05-31] MEDS: SERTRALINE HCL 50 MG TABLET (FP) PO SCH (10:01)
[2019-05-31] MEDS: MINERAL OIL/PETROLAT/WATER TOPICAL CREAM 113 GM JAR TP SCH (10:02)
[2019-05-31] MEDS: HYDROCORTISONE 1% TOPICAL OINT 30 GM TUBE TP PRN (10:02)
[2019-05-31] MEDS: QUEtiapine FUMARATE 100 MG TABLET (FP) PO SCH (21:32)
[2019-05-31] MEDS: THIAMINE HCL 100 MG TABLET (FP) PO SCH (21:32)
[2019-06-01] MEDS: SERTRALINE HCL 50 MG TABLET (FP) PO SCH (10:22)
[2019-06-01] MEDS: PRENATAL VITAMINS W/ FOLIC ACID TABLET (FP) PO SCH (10:22)
[2019-06-01] MEDS: MINERAL OIL/PETROLAT/WATER TOPICAL CREAM 113 GM JAR TP SCH (10:23)
[2019-06-01] MEDS: QUEtiapine FUMARATE 100 MG TABLET (FP) PO SCH (21:25)
[2019-06-01] MEDS: THIAMINE HCL 100 MG TABLET (FP) PO SCH (21:25)
[2019-06-02] MEDS: MINERAL OIL/PETROLAT/WATER TOPICAL CREAM 113 GM JAR TP SCH (10:34)
[2019-06-02] MEDS: SERTRALINE HCL 50 MG TABLET (FP) PO SCH (10:34)
[2019-06-02] MEDS: PRENATAL VITAMINS W/ FOLIC ACID TABLET (FP) PO SCH (10:34)
[2019-06-02] MEDS: HYDROCORTISONE 1% TOPICAL OINT 30 GM TUBE TP PRN (10:35)
[2019-06-02] MEDS: QUEtiapine FUMARATE 100 MG TABLET (FP) PO SCH (21:29)
[2019-06-02] MEDS: THIAMINE HCL 100 MG TABLET (FP) PO SCH (21:29)
[2019-06-03] MEDS: SERTRALINE HCL 50 MG TABLET (FP) PO SCH (10:46)
[2019-06-03] MEDS: PRENATAL VITAMINS W/ FOLIC ACID TABLET (FP) PO SCH (10:46)
[2019-06-03] MEDS: MINERAL OIL/PETROLAT/WATER TOPICAL CREAM 113 GM JAR TP SCH (10:47)
[2019-06-03] MEDS: THIAMINE HCL 100 MG TABLET (FP) PO SCH (21:35)
[2019-06-03] MEDS: QUEtiapine FUMARATE 100 MG TABLET (FP) PO SCH (21:35)
[2019-06-04] MEDS: SERTRALINE HCL 50 MG TABLET (FP) PO SCH (10:39)
[2019-06-04] MEDS: MINERAL OIL/PETROLAT/WATER TOPICAL CREAM 113 GM JAR TP SCH (10:39)
[2019-06-04] MEDS: PRENATAL VITAMINS W/ FOLIC ACID TABLET (FP) PO SCH (10:39)
[2019-06-04] MEDS: QUEtiapine FUMARATE 100 MG TABLET (FP) PO SCH (21:28)
[2019-06-04] MEDS: THIAMINE HCL 100 MG TABLET (FP) PO SCH (21:28)
[2019-06-05] MEDS: MINERAL OIL/PETROLAT/WATER TOPICAL CREAM 113 GM JAR TP SCH (11:10)
[2019-06-05] MEDS: SERTRALINE HCL 50 MG TABLET (FP) PO SCH (11:11)
[2019-06-05] MEDS: PRENATAL VITAMINS W/ FOLIC ACID TABLET (FP) PO SCH (11:11)
[2019-06-05] MEDS: THIAMINE HCL 100 MG TABLET (FP) PO SCH (21:28)
[2019-06-05] MEDS: QUEtiapine FUMARATE 100 MG TABLET (FP) PO SCH (21:28)
[2019-06-06] MEDS: SERTRALINE HCL 50 MG TABLET (FP) PO SCH (10:34)
[2019-06-06] MEDS: MINERAL OIL/PETROLAT/WATER TOPICAL CREAM 113 GM JAR TP SCH (10:35)
[2019-06-06] MEDS: PRENATAL VITAMINS W/ FOLIC ACID TABLET (FP) PO SCH (10:35)
[2019-06-06] MEDS: QUEtiapine FUMARATE 100 MG TABLET (FP) PO SCH (21:30)
[2019-06-06] MEDS: THIAMINE HCL 100 MG TABLET (FP) PO SCH (21:30)
[2019-06-07] MEDS: MINERAL OIL/PETROLAT/WATER TOPICAL CREAM 113 GM JAR TP SCH (10:18)
[2019-06-07] MEDS: SERTRALINE HCL 50 MG TABLET (FP) PO SCH (10:18)
[2019-06-07] MEDS: PRENATAL VITAMINS W/ FOLIC ACID TABLET (FP) PO SCH (10:18)
[2019-06-07] MEDS: THIAMINE HCL 100 MG TABLET (FP) PO SCH (21:34)
[2019-06-07] MEDS: QUEtiapine FUMARATE 100 MG TABLET (FP) PO SCH (21:34)
[2019-06-08] MEDS: PRENATAL VITAMINS W/ FOLIC ACID TABLET (FP) PO SCH (10:04)
[2019-06-08] MEDS: SERTRALINE HCL 50 MG TABLET (FP) PO SCH (10:04)
[2019-06-08] MEDS: MINERAL OIL/PETROLAT/WATER TOPICAL CREAM 113 GM JAR TP SCH (10:04)
[2019-06-08] MEDS: THIAMINE HCL 100 MG TABLET (FP) PO SCH (21:25)
[2019-06-08] MEDS: QUEtiapine FUMARATE 100 MG TABLET (FP) PO SCH (21:25)
[2019-06-09] MEDS: PRENATAL VITAMINS W/ FOLIC ACID TABLET (FP) PO SCH (10:22)
[2019-06-09] MEDS: MINERAL OIL/PETROLAT/WATER TOPICAL CREAM 113 GM JAR TP SCH (10:22)
[2019-06-09] MEDS: SERTRALINE HCL 50 MG TABLET (FP) PO SCH (10:22)
[2019-06-09] MEDS: THIAMINE HCL 100 MG TABLET (FP) PO SCH (21:22)
[2019-06-09] MEDS: QUEtiapine FUMARATE 100 MG TABLET (FP) PO SCH (21:22)
[2019-06-10] MEDS: SERTRALINE HCL 50 MG TABLET (FP) PO SCH (10:11)
[2019-06-10] MEDS: PRENATAL VITAMINS W/ FOLIC ACID TABLET (FP) PO SCH (10:11)
[2019-06-10] MEDS: IBUPROFEN 400 MG TABLET (FP) PO PRN (10:11)
[2019-06-10] MEDS: MINERAL OIL/PETROLAT/WATER TOPICAL CREAM 113 GM JAR TP SCH (10:14)
[2019-06-10] MEDS ORDERED: LIDOCAINE VISCOUS 2% ORAL/TOP 20 ML UNIT-DOSE CUP MM PRN (10:52)
--- NOTE | 2019-06-10 10:59 | PN ---
[facility] Progress Note (SOAP) Subjective: Pt c/o excruciating tooth ache with left cheekbone pain. Pt requesting to take out tooth now. Pt reports "I was supposed to have taken this tooth out but to tell you the truth, I am afraid to go to the dentist. I have to take it out first thing after I leave here". l Objective: 06/10/19 11:43 Vital Signs - 24 hr 06/10/19 06/10/19 06/10/19 00:30 03:30 07:02 Temperature 97.6 F Pulse Rate 60 Respiratory 18 18 18 Rate Blood Pressure 120/68 Alert o x 3 oob ambulating with steady gait Heent/Oral:Normocephalic,eomi,ynes,mmm,throat with no redness or swelling; left upper molar with slight swelling,mildly red/abscess Left cheek/cheekbone mildly red and swollen with tenderness to palpation. Assessment: 06/10/19 11:45 A/P Left Molar Abscess Tooth pain Plan: Amoxicillin 500 mg po TID x 10 days Lidocaine Viscous 2% 5 ml po swish and spit Q3H prn for pain motrin prn d/w pt to follow up with his Dentist for tooth extraction after rehab treatment. pt denies PCN allergy. pt agreeable to poc
[2019-06-10] MEDS: AMOXICILLIN 500 MG CAPSULE (FP) PO SCH ×2 (14:20→21:33)
[2019-06-10] MEDS: THIAMINE HCL 100 MG TABLET (FP) PO SCH (21:33)
[2019-06-10] MEDS: QUEtiapine FUMARATE 100 MG TABLET (FP) PO SCH (21:33)
[2019-06-11] MEDS: PRENATAL VITAMINS W/ FOLIC ACID TABLET (FP) PO SCH (10:22)
[2019-06-11] MEDS: MINERAL OIL/PETROLAT/WATER TOPICAL CREAM 113 GM JAR TP SCH (10:23)
[2019-06-11] MEDS: IBUPROFEN 400 MG TABLET (FP) PO PRN (10:24)
[2019-06-11] MEDS: SERTRALINE HCL 50 MG TABLET (FP) PO SCH (10:24)
[2019-06-11] MEDS: AMOXICILLIN 500 MG CAPSULE (FP) PO SCH (14:25)
[2019-06-11] MEDS: QUEtiapine FUMARATE 100 MG TABLET (FP) PO SCH (21:24)
[2019-06-11] MEDS: THIAMINE HCL 100 MG TABLET (FP) PO SCH (21:24)
[2019-06-12] MEDS: PRENATAL VITAMINS W/ FOLIC ACID TABLET (FP) PO SCH (10:02)
[2019-06-12] MEDS: SERTRALINE HCL 50 MG TABLET (FP) PO SCH (10:03)
[2019-06-12] MEDS: AMOXICILLIN 500 MG CAPSULE (FP) PO SCH ×3 (10:05→21:44)
[2019-06-12] MEDS: MINERAL OIL/PETROLAT/WATER TOPICAL CREAM 113 GM JAR TP SCH (10:05)
[2019-06-12] MEDS: QUEtiapine FUMARATE 100 MG TABLET (FP) PO SCH (21:44)
[2019-06-12] MEDS: THIAMINE HCL 100 MG TABLET (FP) PO SCH (21:44)
[2019-06-13] MEDS: AMOXICILLIN 500 MG CAPSULE (FP) PO SCH ×3 (08:00→21:20)
[2019-06-13] MEDS: PRENATAL VITAMINS W/ FOLIC ACID TABLET (FP) PO SCH (10:26)
[2019-06-13] MEDS: SERTRALINE HCL 50 MG TABLET (FP) PO SCH (10:26)
[2019-06-13] MEDS: MINERAL OIL/PETROLAT/WATER TOPICAL CREAM 113 GM JAR TP SCH (10:27)
[2019-06-13] MEDS: COLLOIDAL OATMEAL 1 BAR EACH TP PRN (20:12)
[2019-06-13] MEDS: THIAMINE HCL 100 MG TABLET (FP) PO SCH (21:20)
[2019-06-13] MEDS: QUEtiapine FUMARATE 100 MG TABLET (FP) PO SCH (21:20)
[2019-06-14] MEDS: AMOXICILLIN 500 MG CAPSULE (FP) PO SCH ×5 (06:30→22:22)
[2019-06-14] MEDS: SERTRALINE HCL 50 MG TABLET (FP) PO SCH (10:25)
[2019-06-14] MEDS: PRENATAL VITAMINS W/ FOLIC ACID TABLET (FP) PO SCH (10:25)
[2019-06-14] MEDS: MINERAL OIL/PETROLAT/WATER TOPICAL CREAM 113 GM JAR TP SCH (10:26)
[2019-06-14] MEDS: THIAMINE HCL 100 MG TABLET (FP) PO SCH (21:40)
[2019-06-14] MEDS: QUEtiapine FUMARATE 100 MG TABLET (FP) PO SCH (21:40)
[2019-06-15] MEDS: AMOXICILLIN 500 MG CAPSULE (FP) PO SCH ×3 (06:44→21:13)
[2019-06-15] MEDS: PRENATAL VITAMINS W/ FOLIC ACID TABLET (FP) PO SCH (09:58)
[2019-06-15] MEDS: SERTRALINE HCL 50 MG TABLET (FP) PO SCH (09:58)
[2019-06-15] MEDS: MINERAL OIL/PETROLAT/WATER TOPICAL CREAM 113 GM JAR TP SCH (09:58)
[2019-06-15] MEDS: THIAMINE HCL 100 MG TABLET (FP) PO SCH (21:13)
[2019-06-15] MEDS: QUEtiapine FUMARATE 100 MG TABLET (FP) PO SCH (21:13)
[2019-06-16] MEDS: AMOXICILLIN 500 MG CAPSULE (FP) PO SCH ×3 (06:24→21:36)
[2019-06-16] MEDS: MINERAL OIL/PETROLAT/WATER TOPICAL CREAM 113 GM JAR TP SCH (10:03)
[2019-06-16] MEDS: SERTRALINE HCL 50 MG TABLET (FP) PO SCH (10:03)
[2019-06-16] MEDS: PRENATAL VITAMINS W/ FOLIC ACID TABLET (FP) PO SCH (10:03)
[2019-06-16] MEDS: THIAMINE HCL 100 MG TABLET (FP) PO SCH (21:36)
[2019-06-16] MEDS: QUEtiapine FUMARATE 100 MG TABLET (FP) PO SCH (21:36)
[2019-06-16 22:24] VITALS: BMI 27.1
[2019-06-17] MEDS: AMOXICILLIN 500 MG CAPSULE (FP) PO SCH ×3 (07:51→21:31)
[2019-06-17] MEDS: MINERAL OIL/PETROLAT/WATER TOPICAL CREAM 113 GM JAR TP SCH (10:31)
[2019-06-17] MEDS: PRENATAL VITAMINS W/ FOLIC ACID TABLET (FP) PO SCH (10:31)
[2019-06-17] MEDS: SERTRALINE HCL 50 MG TABLET (FP) PO SCH (10:31)
[2019-06-17] MEDS: QUEtiapine FUMARATE 100 MG TABLET (FP) PO SCH (21:31)
[2019-06-17] MEDS: THIAMINE HCL 100 MG TABLET (FP) PO SCH (21:31)
[2019-06-18] MEDS: AMOXICILLIN 500 MG CAPSULE (FP) PO SCH ×3 (06:43→21:23)
[2019-06-18] MEDS: MINERAL OIL/PETROLAT/WATER TOPICAL CREAM 113 GM JAR TP SCH (10:27)
[2019-06-18] MEDS: HYDROCORTISONE 1% TOPICAL OINT 30 GM TUBE TP PRN (10:27)
[2019-06-18] MEDS: PRENATAL VITAMINS W/ FOLIC ACID TABLET (FP) PO SCH (10:28)
[2019-06-18] MEDS: SERTRALINE HCL 50 MG TABLET (FP) PO SCH (10:28)
[2019-06-18] MEDS: THIAMINE HCL 100 MG TABLET (FP) PO SCH (21:24)
[2019-06-18] MEDS: QUEtiapine FUMARATE 100 MG TABLET (FP) PO SCH (21:24)
[2019-06-19] MEDS: AMOXICILLIN 500 MG CAPSULE (FP) PO SCH ×3 (07:57→21:24)
[2019-06-19] MEDS: SERTRALINE HCL 50 MG TABLET (FP) PO SCH (10:20)
[2019-06-19] MEDS: HYDROCORTISONE 1% TOPICAL OINT 30 GM TUBE TP PRN (10:21)
[2019-06-19] MEDS: PRENATAL VITAMINS W/ FOLIC ACID TABLET (FP) PO SCH (10:21)
[2019-06-19] MEDS: MINERAL OIL/PETROLAT/WATER TOPICAL CREAM 113 GM JAR TP SCH (10:22)
[2019-06-19] MEDS: THIAMINE HCL 100 MG TABLET (FP) PO SCH (21:24)
[2019-06-19] MEDS: QUEtiapine FUMARATE 100 MG TABLET (FP) PO SCH (21:24)
[2019-06-20] MEDS: AMOXICILLIN 500 MG CAPSULE (FP) PO SCH ×3 (07:13→21:22)
[2019-06-20] MEDS: SERTRALINE HCL 50 MG TABLET (FP) PO SCH (10:13)
[2019-06-20] MEDS: PRENATAL VITAMINS W/ FOLIC ACID TABLET (FP) PO SCH (10:13)
[2019-06-20] MEDS: HYDROCORTISONE 1% TOPICAL OINT 30 GM TUBE TP PRN ×2 (10:13→21:22)
[2019-06-20] MEDS: MINERAL OIL/PETROLAT/WATER TOPICAL CREAM 113 GM JAR TP SCH (10:14)
[2019-06-20] MEDS: QUEtiapine FUMARATE 100 MG TABLET (FP) PO SCH (21:21)
[2019-06-20] MEDS: THIAMINE HCL 100 MG TABLET (FP) PO SCH (21:21)
[2019-06-21] MEDS: MINERAL OIL/PETROLAT/WATER TOPICAL CREAM 113 GM JAR TP SCH (10:07)
[2019-06-21] MEDS: PRENATAL VITAMINS W/ FOLIC ACID TABLET (FP) PO SCH (10:07)
[2019-06-21] MEDS: SERTRALINE HCL 50 MG TABLET (FP) PO SCH (10:07)
[2019-06-21] MEDS: QUEtiapine FUMARATE 100 MG TABLET (FP) PO SCH (21:33)
[2019-06-21] MEDS: THIAMINE HCL 100 MG TABLET (FP) PO SCH (21:33)
[2019-06-22] MEDS: MINERAL OIL/PETROLAT/WATER TOPICAL CREAM 113 GM JAR TP SCH (09:44)
[2019-06-22] MEDS: SERTRALINE HCL 50 MG TABLET (FP) PO SCH (09:44)
[2019-06-22] MEDS: PRENATAL VITAMINS W/ FOLIC ACID TABLET (FP) PO SCH (09:45)
--- NOTE | 2019-06-22 13:36 | PN ---
[facility] Progress Note Note: Patient is scheduled for discharge tomorrow. Scripts for 30 days suppply of medications(Zoloft 100 mg/day, Seroquel 100 mg/hs) will be electronically transmitted to [facility] at [address] [place], [place] [id number]
[2019-06-22] MEDS: IBUPROFEN 400 MG TABLET (FP) PO PRN (17:15)
[2019-06-22] MEDS: THIAMINE HCL 100 MG TABLET (FP) PO SCH (22:48)
[2019-06-22] MEDS: QUEtiapine FUMARATE 100 MG TABLET (FP) PO SCH (22:48)
[2019-06-23 07:40] VITALS: BP 123/72; PULSE 62; TEMP 97.3
--- NOTE | 2019-06-23 09:49 | DS ---
[facility] Rehab Discharge Summary - [facility] Rehab Discharge Summary Admission Date: 05/27/19 Discharge Date: 06/23/19 - History Present History: Alcohol dependence, Cannabis dependence, Cocaine dependence Additional Comments: Pt is a 44 y/o male with a hx of МАРИНА admitted to rehab after completing detox on and scheduled to discharge today. Pt has been referred to aftercare follow up with [facility]. pt reports he has no current PCP and has been recommended to follow up with [facility] for medical management as needed. Pertinent Past History: GERD(not currently active) Hx Right Heel Sx- S/P Right Ankle Fx. Hx Depression Sleep Disorder - Discharge Physical Exam Vital Signs: Vital Signs Temperature 97.3 F L 06/23/19 07:39 Pulse Rate 62 06/23/19 07:39 Respiratory Rate 18 06/23/19 07:39 Blood Pressure 123/72 06/23/19 07:39 O2 Sat by Pulse Oximetry (%) alert o x 3,denies s/h/i nad oob ambulating with steady gait cardiac:s1 s2,rrr lungs:cta,aaron. abdomen:+bs,soft,nt,nd extremities/skin:no edema,skin intact Pertinent Admission Physical Exam Findings: Laboratory Tests 05/30/19 08:54 Hep C Ab Diagnostic <0.1 CXR-Negative - Treatment Discharge Condition: Discharge condition good Hospital Course: Rehabilitated safely Responded well CD aftercare referral accepted Pt participated in groups and individual sessions while in treatment. - Medication Discharge Medications: Ambulatory Orders Quetiapine Fumarate [Seroquel -] 100 mg PO HS #30 tablet 06/22/19 Sertraline HCl [Zoloft] 100 mg PO DAILY #30 tablet 06/22/19 - Medication-Assisted Treatment (MAT) Medication-Assisted Treatment (MAT): No - Discharge Instructions Diet, activity, other medical instructions: Diet:Regular Activity: oob ad smita Other medical instructions:follow up with Cd aftercare recommendations as scheduled. follow up with primary care with [facility] within 1-2 weeks after discharge and as needed. - Diagnosis (1) Cannabis dependence Status: Chronic (2) Cocaine dependence Status: Chronic Qualifiers: Substance use status: uncomplicated Qualified Code(s): F14.20 - Cocaine dependence, uncomplicated (3) Nicotine dependence Status: Chronic Qualifiers: Nicotine product type: cigarettes Substance use status: uncomplicated Qualified Code(s): F17.210 - Nicotine dependence, cigarettes, uncomplicated (4) Alcohol dependency Status: Chronic Qualifiers: Substance use status: uncomplicated Qualified Code(s): F10.20 - Alcohol dependence, uncomplicated - Follow-up Referral Minutes to complete discharge: 30 - AMA Did Patient Leave Against Medical Advice: No
[2019-06-23] MEDS: SERTRALINE HCL 50 MG TABLET (FP) PO SCH (11:03)
[2019-06-23] MEDS: MINERAL OIL/PETROLAT/WATER TOPICAL CREAM 113 GM JAR TP SCH (11:03)
[2019-06-23] MEDS: PRENATAL VITAMINS W/ FOLIC ACID TABLET (FP) PO SCH (11:03)
== END 2019-06-23 10:12 | disposition home or self-care (01) | DRG 772 ==
LOC: YASAS 17:13 → Y5N 17:14
PROVIDERS: ADMIT Allergy & Immunology; ATTEND Allergy & Immunology
PROC: HZ42ZZZ Group Counseling for Substance Abuse Treatment, Cognitive-Behavioral (ICD-10-PCS; principal; 2019-05-27)
DX: F10.20 Alcohol dependence, uncomplicated (principal); F14.20 Cocaine dependence, uncomplicated; F12.20 Cannabis dependence, uncomplicated; F17.210 Nicotine dependence, cigarettes, uncomplicated; F32.9 Major depressive disorder, single episode, unspecified; K04.7 Periapical abscess without sinus; K08.89 Other specified disorders of teeth and supporting structures; Z87.81 Personal history of (healed) traumatic fracture
CPT/HCPCS: 36415; 86803

== ENCOUNTER 2019-11-28 13:46 | Inpatient (IN) | payer OTHER ==
--- NOTE | 2019-11-28 14:18 | BHS.RME ---
Substance Use & Tx History - Substance Use History Alcohol Substance amount: 1.5 pints Vodka Frequency of use: Daily Substance route: Oral Date of Last Use: 11/28/19 (First use age 13 y. No seizures or blackouts. 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) Heroin Substance amount: 2 bags Frequency of use: Daily Substance route: Inhalation (ex: sniffing or snorting) Date of Last Use: 11/28/19 (First use a couple of months ago) Cocaine-Crack Substance amount: $100 Frequency of use: Daily Substance route: Smoking Date of Last Use: 11/28/19 (First use age 33 y) - Last Treatment Date of last treatment: May 24 to Jun 23, detox and rehab here Treatment type: Substance Use Disorder (МАРИНА) Physical/Psych/Mental Status - Behavior General Behavior: Increased activity (restlessness, agitation) Eye Contact: Normal - Cooperativeness Cooperativeness: Cooperative - Thinking Thought Processes: Tight Thought content: Future oriented - Physical Health Problems Is patient presently having any pain?: No Does patient presently have any injuries (include location): No Does patient currently have a fever: No COWS - Scale Resting Pulse: 0= [place] 80 or Below Sweatin=Flushed/Facial Moisture Restless Observation: 0= Sits Still Pupil Size: 0= Normal to Room Light Bone or Joint Aches: 1= Mild Discomfort Runny Nose/ Eye Tearin= Nasal Congestion GI Upset > 30mins: 2= Nausea/Diarrhea Tremor Observation: 0= None Yawning Observation: 0= None Anxiety or Irritability: 1=Feels Anxious/Irritable Goose Flesh Skin: 0=Smooth Skin COWS Score: 7 CIWA Nausea/Vomitin Muscle Tremors: None Anxiety: 3 Agitation: 3 Paroxysmal Sweats: 3 Orientation: 1-Uncertain about Date Tacttile Disturbances: 0-None Auditory Disturbances: 0-None Visual Disturbances: 2-Mild Sensitivity Headache: 0-None Present CIWA-Ar Total Score: 14
--- NOTE | 2019-11-28 16:39 | HP ---
COWS - Scale Resting Pulse: 0= [place] 80 or Below Sweatin=Flushed/Facial Moisture Restless Observation: 0= Sits Still Pupil Size: 0= Normal to Room Light Bone or Joint Aches: 1= Mild Discomfort Runny Nose/ Eye Tearin= Nasal Congestion GI Upset > 30mins: 2= Nausea/Diarrhea Tremor Observation: 0= None Yawning Observation: 0= None Anxiety or Irritability: 1=Feels Anxious/Irritable Goose Flesh Skin: 0=Smooth Skin COWS Score: 7 CIWA Score Nausea/Vomitin Muscle Tremors: None Anxiety: 3 Agitation: 3 Paroxysmal Sweats: 3 Orientation: 1-Uncertain about Date Tacttile Disturbances: 0-None Auditory Disturbances: 0-None Visual Disturbances: 2-Mild Sensitivity Headache: 0-None Present CIWA-Ar Total Score: 14 - Admission Criteria OASAS Guidelines: Admission for Medically Managed Detox: Requires at least one of the followin. CIWA greater than 12 2. Seizures within the past 24 hours 3. Delirium tremens within the past 24 hours 4. Hallucinations within the past 24 hours 5. Acute intervention needed for co occurring medical disorder 6. Acute intervention needed for co occurring psychiatric disorder 7. Severe withdrawal that cannot be handled at a lower level of care (continued vomiting, continued diarrhea, abnormal vital signs) requiring intravenous medication and/or fluids 8. Admitting History and Physical - Admission Chief Complaint: 'Need detox from crack cocaine and alcohol' History of Present Illness: CC: 'Need detox from crack cocaine and alcohol' HPI: Christian is a 44 year old man with polysubstance abuse disorder (alcohol, heroin, crack cocaine) who was admitted for detox and rehab from 05/24 to 06/23, however he relapsed soon after. Substance Use History Alcohol Substance amount: 1.5 pints Vodka Frequency of use: Daily Substance route: Oral Date of Last Use: 11/28/19 (First use age 13 y. No seizures or blackouts. 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) Heroin Substance amount: 2 bags Frequency of use: Daily Substance route: Inhalation (ex: sniffing or snorting) Date of Last Use: 11/28/19 (First use a couple of months ago) Cocaine-Crack Substance amount: $100 Frequency of use: Daily Substance route: Smoking Date of Last Use: 11/28/19 (First use age 33 y) Nicotine Substance amount: 1/2 pack per day Frequency of use: Daily PMH: None Psych: Previously on Zoloft and Seroquel for bipolar disorder Social: Living in car Legal: None History Source: Patient Limitations to Obtaining History: No Limitations - Smoking History Smoking history: Current every day smoker Have you smoked in the past 12 months: Yes Aproximately how many cigarettes per day: 10 - Alcohol/Substance Use Hx Alcohol Use: Yes - Social History Usual Living Arrangement: Yes: Alone Admission [facility] Chief Complaint: 'Need detox from crack cocaine and alcohol' Allergies/Adverse Reactions: Allergies Allergy/AdvReac Type Severity Reaction Status Date / Time No Known Allergies Allergy Verified 05/27/19 17:19 Exam Limitations: No Limitations - Ebola screening Have you traveled outside of the country in the last 21 days: No Have you had contact with anyone from an Ebola affected area: No Have you been sick,other than usual withdrawal symptoms: No Do you have a fever: No - Review of Systems Constitutional: Loss of Appetite, Unintentional Wgt. Loss EENT: reports: Dental Problems (tooth pain). denies: Eye Pain, Ear Pain, Nose Congestion Respiratory: denies: Cough, Shortness of Breath, Productive cough Cardiac: denies: Chest Pain, Lightheadedness, Syncope : reports: No Symptoms Reported Musculoskeletal: reports: Muscle Pain. denies: Back Pain, Gout, Joint Pain Integumentary: denies: Bruising, Pruritus, Rash Neuro: reports: Tremors. denies: Headache, Numbness, Paresthesia, Dizziness Endocrine: reports: No Symptoms Reported Hematology: denies: Blood Clots (oriented to self and place, knows month) Patient History - Patient Medical History Hx Anemia: No Hx Asthma: No Hx Chronic Obstructive Pulmonary Disease (COPD): No Hx Cancer: No Hx Cardiac Disorders: No Hx Congestive Heart Failure: No Hx Hypertension: No Hx Hypercholesterolemia: No Hx Pacemaker: No HX Cerebrovascular Accident: No Hx Seizures: No Hx Dementia: No Hx Diabetes: No Hx Gastrointestinal Disorders: Yes (GERD) Hx Liver Disease: No Hx Genitourinary Disorders: No Hx Sexually Transmitted Disorders: No Hx Renal Disease (ESRD): No Hx Thyroid Disease: No Hx Human Immunodeficiency Virus (HIV): No Hx Hepatitis C: No Hx Depression: Yes Hx Suicide Attempt: No Hx Bipolar Disorder: No Hx Schizophrenia: No - Patient Surgical History Past Surgical History: Yes Hx Neurologic Surgery: No Hx Cataract Extraction: No Hx Cardiac Surgery: No Hx Lung Surgery: No Hx Breast Surgery: No Hx Breast Biopsy: No Hx Abdominal Surgery: No Hx Appendectomy: No Hx Cholecystectomy: No Hx Genitourinary Surgery: No Hx Section: No Hx Orthopedic Surgery: Yes (right ankle fracture repair) Anesthesia Reaction: No - Smoking Cessation Smoking history: Current every day smoker Have you smoked in the past 12 months: Yes Aproximately how many cigarettes per day: 10 Hx Chewing Tobacco Use: No Initiated information on smoking cessation: Yes 'Breaking Loose' booklet given: 11/28/19 Admission Physical Exam [facility] - Physical General Appearance: Yes: Within Normal Limits HEENTM: Yes: Normocephalic, Normal Voice, Photophobia. No: Nasal Congestion, Rhinorrhea Respiratory: Yes: Lungs Clear, Normal Breath Sounds, No Respiratory Distress, No Accessory Muscle Use Neck: Yes: Supple Breast: Yes: Breast Exam Deferred Cardiology: Yes: Regular Rhythm, Regular Rate, S1, S2 Abdominal: Yes: Normal Bowel Sounds, Non Tender, Flat, Soft Back: Yes: Normal Inspection Musculoskeletal: Yes: full range of Motion, Gait Steady Extremities: Yes: Normal Inspection, Normal Range of Motion, Tremors Neurological: Yes: Alert, Motor Strength 5/5, Normal Mood/Affect, Normal R esponse Integumentary: Yes: Normal Color, Dry, Warm - Diagnostic (1) Nicotine dependence Current Visit: Yes Status: Chronic Qualifiers: Nicotine product type: cigarettes Substance use status: uncomplicated Qualified Code(s): F17.210 - Nicotine dependence, cigarettes, uncomplicated (2) Alcohol use disorder Current Visit: Yes Status: Acute (3) Cocaine dependence Current Visit: Yes Status: Acute Qualifiers: Substance use status: uncomplicated Qualified Code(s): F14.20 - Cocaine dependence, uncomplicated Cleared for Admission S - Detox or Rehab [facility] Level of Care: Medically Managed Screened but not Admitted - Documentation of Visit Screened but not Admitted: No Breathalyzer - Breathalyzer Breathalyzer: 0 Urine Drug Screen - Test Device Lot number: [id number] Expiration date: 11/27/20 - Control Is test valid?: Yes - Results Drug screen NEGATIVE: No Urine drug screen results: CHYNA-Cocaine, BZO-Benzodiazepines Inpatient Rehab Admission - Rehab Decision to Admit Inpatient rehab admission?: No
[2019-11-28 17:18] VITALS: BMI 28.8
[2019-11-28] MEDS ORDERED: BISMUTH SUBSALICYLATE 524 MG/30 ML UD PO PRN (17:22)
[2019-11-28] MEDS ORDERED: MENTHOL/PHENOL 1 EACH UD MM PRN (17:22)
[2019-11-28] MEDS ORDERED: MAGNESIUM HYDROX 2400MG/30ML ORAL SUSPENSION 30 ML CUP PO PRN (17:22)
[2019-11-28] MEDS ORDERED: chlordiazePOXIDE HCL 25 MG CAPSULE PO PRN (17:22)
[2019-11-28] MEDS ORDERED: IBUPROFEN 400 MG TABLET (FP) PO PRN (17:22)
[2019-11-28] MEDS ORDERED: ACETAMINOPHEN 325 MG TABLET (FP) PO PRN ×2 (17:22)
[2019-11-28] MEDS ORDERED: MAGNESIUM CITRATE 300 ML BOTTLE PO PRN (17:22)
[2019-11-28] MEDS ORDERED: ONDANSETRON *ODT* 4 MG TABLET SL PRN (17:22)
[2019-11-28] MEDS ORDERED: NICOTINE POLACRILEX 2 MG GUM BUC PRN (17:22)
[2019-11-28] MEDS ORDERED: MAG HYDROX/AL HYDROX/SIMETH 30 ML UNIT-DOSE CUP PO PRN (17:22)
[2019-11-28] MEDS ORDERED: METHADONE HCL 10 MG TABLET (FOR DETOX USE ONLY) PO ONE (17:58)
[2019-11-28] MEDS ORDERED: cloNIDine HCL 0.1 MG TABLET PO PRN (17:58)
[2019-11-28] MEDS: hydrOXYzine PAMOATE 25 MG CAPSULE (FP) PO SCH ×2 (18:29→22:38)
[2019-11-28] MEDS: SULFACETAMIDE SODIUM 10% OPHTHALMIC DROPS 15 ML BOTTLE OD SCH ×2 (20:42→20:43)
[2019-11-28] MEDS: METHOCARBAMOL 500 MG TABLET PO PRN (20:49)
[2019-11-28] MEDS: chlordiazePOXIDE HCL 25 MG CAPSULE PO SCH (22:38)
[2019-11-28] MEDS: THIAMINE HCL 100 MG TABLET (FP) PO SCH (22:38)
[2019-11-28] MEDS: MELATONIN 5 MG TABLETS PO SCH (22:39)
[2019-11-29] MEDS: hydrOXYzine PAMOATE 25 MG CAPSULE (FP) PO SCH ×5 (05:38→22:26)
[2019-11-29] MEDS: chlordiazePOXIDE HCL 25 MG CAPSULE PO SCH ×4 (05:38→22:27)
[2019-11-29] MEDS: SULFACETAMIDE SODIUM 10% OPHTHALMIC DROPS 15 ML BOTTLE OD SCH ×5 (08:19→14:53)
[2019-11-29] MEDS ORDERED: METHADONE HCL 5 MG TABLET (FOR DETOX USE ONLY) PO ONE (10:00)
[2019-11-29] MEDS: PRENATAL VITAMINS W/ FOLIC ACID TABLET (FP) PO SCH (10:34)
[2019-11-29] MEDS: NICOTINE 14 MG/24 HOURS TOPICAL PATCH TD SCH (10:34)
[2019-11-29 11:00] LABS: HEMATOCRIT 42.1 % (35.4-49); HEMOGLOBIN 14.2 GM/dL (11.7-16.9); MCH 29.3 pg (25.7-33.7); MCHC 33.6 g/dl (32.0-35.9); MEAN CELL VOLUME 86.9 fl (80-96); MEAN PLT VOLUME 8.7 fl (7.5-11.1); PLATELET COUNT 253 K/MM3 (134-434); RBC 4.84 M/mm3 (4.00-5.60); RDW 15.1 % (11.9-15.9)
--- NOTE | 2019-11-29 11:14 | PN ---
S CIWA - CIWA Score Nausea/Vomitin-No Nausea/No Vomiting Muscle Tremors: None Anxiety: 3 Agitation: 0-Normal Activity Paroxysmal Sweats: 3 Orientation: 0-Oriented Tacttile Disturbances: 0-None Auditory Disturbances: 0-None Visual Disturbances: 0-None Headache: 2-Mild CIWA-Ar Total Score: 8 S COWS - Scale Resting Pulse: 0= [place] 80 or Below Sweatin= Beads of Sweat on Face Restless Observation: 1= Difficult to Sit Still Pupil Size: 0= Normal to Room Light Bone or Joint Aches: 0= None Runny Nose/ Eye Tearin= None GI Upset > 30mins: 0= None Tremor Observation of Outstretched Hands: 0= None Yawning Observation: 1= 1-2x During Session Anxiety or Irritability: 2=Irritable/Anxious Goose Flesh Skin: 0=Smooth Skin COWS Score: 7 [facility] Progress Note (SOAP) Subjective: c/o sweats, anxiety, muscle aches, and headache. Objective: 11/29/19 11:11 Vital Signs 11/29/19 11/29/19 06:43 08:53 Temperature 97.8 F 97.8 F Pulse Rate 67 71 Respiratory 18 18 Rate Blood Pressure 102/67 117/67 O2 Sat by Pulse 99 Oximetry (%) Laboratory Last Values WBC 7.0 K/mm3 (4.0-10.0) 11/29/19 08:10 RBC 4.84 M/mm3 (4.00-5.60) 11/29/19 08:10 Hgb 14.2 GM/dL (11.7-16.9) 11/29/19 08:10 Hct 42.1 % (35.4-49) 11/29/19 08:10 MCV 86.9 fl (80-96) 11/29/19 08:10 MCH 29.3 pg (25.7-33.7) 11/29/19 08:10 MCHC 33.6 g/dl (32.0-35.9) 11/29/19 08:10 RDW 15.1 % (11.9-15.9) 11/29/19 08:10 Plt Count 253 K/MM3 (134-434) 11/29/19 08:10 MPV 8.7 fl (7.5-11.1) 11/29/19 08:10 The rest of the lab results pending. Assessment: 11/29/19 11:12 AOX3, in no acute respiratory distress. Full ROM, ambulating in the unit. Withdrawal symptoms. Covid-19 test result pending. 11/29/19 11:13 Plan: continue detox.
--- NOTE | 2019-11-29 11:49 | CONSULT ---
[facility] Psychiatric Consult - Data Date of interview: 11/29/19 Admission source: [facility] Identifying data: Revisit to [facility] and admission to [address] [place] [address] for this 44 y/o AA male self-referred for detoxification treatment. МАРИНА issues : heroin, cocaine, alcohol, nicotine. Patient is , a father of two (claimed one dependent in a previous interview), homeless, unemployed and supported on food stamps. Substance Abuse History: Discussed with the patient. МАРИНА profile as follows : Alcohol. Substance amount: 1.5 pints Vodka. Frequency of use: Daily. Substance route: Oral. Date of Last Use: 11/28/19 (First use age 13 y. No seizures or blackouts. Admits to eye base filler). Heroin. Substance amount: 2 bags. Frequency of use: Daily. Substance route: Inhalation (ex: sniffing or snorting). Date of Last Use: 11/28/19 (First use a couple of months ago). Cocaine-Crack. Substance amount: $100. Frequency of use: Daily. Substance route: Smoking. Date of Last Use: 11/28/19 (First use age 33 y). Nicotine. Substance amount: 1/2 pack per day. Frequency of use: Daily Medical History: Medical profile is remarkable for antecedent of orthosurgery (fracture of ight ankle) in 2016 + GERD. Noted report of allergy to penicillins. Psychiatric History: In this interview, the patient endorses history of one psychiatric hospitalization, " a long time ago," at [facility] in [place], [place]. Reportedly diagnosed with MDD and maintained on a regimen of seroquel 100 mg/hs + zoloft 100 mg/day. Mr Sanchez indicates that he is known to the [facility] psychiatric OPD clinic (no show for a few months). Patient also admits to non-adherence to his medications. Reports a distant history (years ago) of one suicide attempt via overdose with medications. Physical/Sexual Abuse/Trauma History: Patient denies. Additional Comment: Urine drug screen results: CHYNA-Cocaine, BZO-Benzodiazepines. Noted. 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 " ) Mood: Withdrawn, Hopeful Affect: Mood Congruent, Constricted Patient Behavior: Fatigued, Appropriate, Cooperative Speech Pattern: Clear, Appropriate Voice Loudness: Normal Thought Process: Goal Oriented Thought Disorder: Not Present Hallucinations: Denies Suicidal Ideation: Denies Homicidal Ideation: Denies Insight/Judgement: Poor Sleep: Poorly, Difficulty falling asleep Appetite: Good Gait/Station: Normal Psychiatric Findings - Problem List ([place] 1, 2,3) (1) Alcohol dependence with uncomplicated withdrawal Current Visit: Yes Status: Acute (2) Opioid use disorder Current Visit: Yes Status: Chronic (3) Cocaine dependence Current Visit: Yes Status: Chronic Qualifiers: Substance use status: uncomplicated Qualified Code(s): F14.20 - Cocaine dependence, uncomplicated (4) Nicotine dependence Current Visit: Yes Status: Chronic Qualifiers: Nicotine product type: cigarettes Substance use status: uncomplicated Qualified Code(s): F17.210 - Nicotine dependence, cigarettes, uncomplicated (5) Substance induced mood disorder Current Visit: Yes Status: Chronic (6) History of depression Current Visit: Yes Status: Chronic (7) Insomnia Current Visit: Yes Status: Acute (8) Non-compliance Current Visit: Yes Status: Chronic Comment: Non compliance with OPD care and medications. - Initial Treatment Plan Initial Treatment Plan: Psychoeducation. Sleep hygiene. Detoxification. Resumed, at patient's request and on consent : seroquel 100 mg po hs + zoloft 50 mg po daily. Side effects/benefits of both molecules are discussed with the patient. Agreement given to MD. [place].
[2019-11-29 12:56] LABS: ALBUMIN 3.4 g/dl (3.4-5.0); BILIRUBIN,TOTAL 0.2 mg/dL (0.2-1); BLOOD UREA NITROGEN 15.5 mg/dL (7-18); CREATININE 1.2 mg/dL (0.55-1.3); TOT PROT 6.7 g/dl (6.4-8.2)
[2019-11-29] MEDS: MELATONIN 5 MG TABLETS PO SCH (22:26)
[2019-11-29] MEDS: QUEtiapine FUMARATE 100 MG TABLET (FP) PO SCH (22:27)
[2019-11-29] MEDS: THIAMINE HCL 100 MG TABLET (FP) PO SCH (22:27)
[2019-11-30] MEDS: chlordiazePOXIDE HCL 25 MG CAPSULE PO SCH ×4 (05:17→22:07)
[2019-11-30] MEDS: hydrOXYzine PAMOATE 25 MG CAPSULE (FP) PO SCH ×5 (05:17→22:07)
--- NOTE | 2019-11-30 09:39 | PN ---
S CIWA - CIWA Score Nausea/Vomitin-Mild Nausea/No Vomiting Muscle Tremors: 1-None Visible, but [place] Anxiety: 1-Mildly Anxious Agitation: 0-Normal Activity Paroxysmal Sweats: No Perspiration Orientation: 0-Oriented Tacttile Disturbances: 0-None Auditory Disturbances: 0-None Visual Disturbances: 2-Mild Sensitivity Headache: 1-Very Mild CIWA-Ar Total Score: 6 BHS COWS - Scale Resting Pulse: 0= [place] 80 or Below Sweatin= No chills or Flushing Restless Observation: 0= Sits Still Pupil Size: 1= Pupils >than Normal Bone or Joint Aches: 1= Mild Discomfort Runny Nose/ Eye Tearin= Nasal Congestion GI Upset > 30mins: 1= Stomach Cramp Tremor Observation of Outstretched Hands: 1= Tremor [place], Not Seen Yawning Observation: 0= None Anxiety or Irritability: 1=Feels Anxious/Irritable Goose Flesh Skin: 0=Smooth Skin COWS Score: 6 S Progress Note (SOAP) Subjective: 44 years old male admitted on 11/28/19 for alcohol and opiate withdrawal sx management treating with librium and methadone detox regiment sitting on the edge of the bed eating breakfast no trouble chewing swallowing speech clearly tolerated food well Objective: 11/30/19 09:38 Vital Signs - 24 hr 11/29/19 11/29/19 11/29/19 12:36 16:34 21:15 Temperature 97.1 F L 97.3 F L 97.5 F L Pulse Rate 73 54 L 65 Respiratory 18 18 18 Rate Blood Pressure 108/67 106/70 114/76 O2 Sat by Pulse 100 97 Oximetry (%) 11/30/19 11/30/19 05:13 08:41 Temperature 97.3 F L 97.1 F L Pulse Rate 50 L 55 L Respiratory 18 18 Rate Blood Pressure 96/61 118/77 O2 Sat by Pulse 95 Oximetry (%) Laboratory Tests 11/28/19 11/29/19 11/29/19 18:00 08:10 08:10 WBC 7.0 RBC 4.84 Hgb 14.2 Hct 42.1 MCV 86.9 MCH 29.3 MCHC 33.6 RDW 15.1 Plt Count 253 MPV 8.7 Sodium Potassium Chloride Carbon Dioxide Anion Gap BUN Creatinine Est GFR (CKD-EPI)AfAm Est GFR (CKD-EPI)NonAf Random Glucose Calcium Total Bilirubin AST ALT Alkaline Phosphatase Total Protein Albumin Syphilis Serology Non-reactive COVID-19 (DESMOND) Not detected 11/29/19 08:10 WBC RBC Hgb Hct MCV MCH MCHC RDW Plt Count MPV Sodium 142 Potassium 4.0 Chloride 111 H Carbon Dioxide 25 Anion Gap 6 L BUN 15.5 Creatinine 1.2 Est GFR (CKD-EPI)AfAm 83.54 Est GFR (CKD-EPI)NonAf 72.08 Random Glucose 122 H Calcium 9.0 Total Bilirubin 0.2 AST 14 L ALT 32 Alkaline Phosphatase 83 Total Protein 6.7 Albumin 3.4 Syphilis Serology COVID-19 (DESMOND) 11/30/19 09:39 glucose serum elevation fasting pending Assessment: 11/30/19 09:41 alcohol and opiate withdrawal glucose serum elevation Plan: librium and methadone regiments fasting glucose pending
[2019-11-30] MEDS ORDERED: METHADONE HCL 10 MG TABLET (FOR DETOX USE ONLY) PO ONE (10:00)
[2019-11-30] MEDS: SERTRALINE HCL 50 MG TABLET (FP) PO SCH (10:15)
[2019-11-30] MEDS: PRENATAL VITAMINS W/ FOLIC ACID TABLET (FP) PO SCH (10:15)
[2019-11-30] MEDS: NICOTINE 14 MG/24 HOURS TOPICAL PATCH TD SCH (10:16)
[2019-11-30] MEDS: THIAMINE HCL 100 MG TABLET (FP) PO SCH (22:07)
[2019-11-30] MEDS: QUEtiapine FUMARATE 100 MG TABLET (FP) PO SCH (22:07)
[2019-11-30] MEDS: MELATONIN 5 MG TABLETS PO SCH (22:08)
[2019-12-01] MEDS ORDERED: chlordiazePOXIDE HCL 10 MG CAPSULE PO PRN
[2019-12-01] MEDS: chlordiazePOXIDE HCL 10 MG CAPSULE PO SCH ×4 (05:55→22:34)
[2019-12-01] MEDS: hydrOXYzine PAMOATE 25 MG CAPSULE (FP) PO SCH ×5 (05:55→22:34)
[2019-12-01] MEDS ORDERED: METHADONE HCL 5 MG TABLET (FOR DETOX USE ONLY) PO ONE (06:00)
--- NOTE | 2019-12-01 09:11 | PN ---
[facility] CIWA - CIWA Score Nausea/Vomitin-No Nausea/No Vomiting Muscle Tremors: 1-None Visible, but [place] Anxiety: 1-Mildly Anxious Agitation: 1-Slight > Activity Paroxysmal Sweats: 1-Minimal Palms Moist Orientation: 0-Oriented Tacttile Disturbances: 0-None Auditory Disturbances: 0-None Visual Disturbances: 0-None Headache: 1-Very Mild CIWA-Ar Total Score: 5 S COWS - Scale Resting Pulse: 0= [place] 80 or Below Sweatin= No chills or Flushing Restless Observation: 0= Sits Still Pupil Size: 1= Pupils >than Normal Bone or Joint Aches: 1= Mild Discomfort Runny Nose/ Eye Tearin= None GI Upset > 30mins: 1= Stomach Cramp Tremor Observation of Outstretched Hands: 1= Tremor [place], Not Seen Yawning Observation: 0= None Anxiety or Irritability: 1=Feels Anxious/Irritable Goose Flesh Skin: 0=Smooth Skin COWS Score: 5 S Progress Note (SOAP) Subjective: 44 years old male admitted on 11/28/19 for alcohol and opiate withdrawal sx management treating with librium and methadone detox regiments feeling ok today ate breakfast resting in bed discussing risk of alcohol and opiate abuse in relation to GI insult Objective: 12/01/19 09:13 Vital Signs - 24 hr 11/30/19 11/30/19 11/30/19 12:39 16:35 20:34 Temperature 97.1 F L 98.2 F 97.3 F L Pulse Rate 63 59 L 82 Respiratory 18 18 20 Rate Blood Pressure 111/69 104/64 122/72 O2 Sat by Pulse 97 96 Oximetry (%) 12/01/19 06:00 Temperature 97.6 F Pulse Rate 53 L Respiratory 18 Rate Blood Pressure 99/61 O2 Sat by Pulse 99 Oximetry (%) Vital Signs - 24 hr Laboratory Tests 11/28/19 11/29/19 11/29/19 18:00 08:10 08:10 WBC 7.0 RBC 4.84 Hgb 14.2 Hct 42.1 MCV 86.9 MCH 29.3 MCHC 33.6 RDW 15.1 Plt Count 253 MPV 8.7 Sodium Potassium Chloride Carbon Dioxide Anion Gap BUN Creatinine Est GFR (CKD-EPI)AfAm Est GFR (CKD-EPI)NonAf Random Glucose Calcium Total Bilirubin AST ALT Alkaline Phosphatase Total Protein Albumin Syphilis Serology Non-reactive COVID-19 (DESMOND) Not detected 11/29/19 08:10 WBC RBC Hgb Hct MCV MCH MCHC RDW Plt Count MPV Sodium 142 Potassium 4.0 Chloride 111 H Carbon Dioxide 25 Anion Gap 6 L BUN 15.5 Creatinine 1.2 Est GFR (CKD-EPI)AfAm 83.54 Est GFR (CKD-EPI)NonAf 72.08 Random Glucose 122 H Calcium 9.0 Total Bilirubin 0.2 AST 14 L ALT 32 Alkaline Phosphatase 83 Total Protein 6.7 Albumin 3.4 Syphilis Serology COVID-19 (DESMOND) fasting glucose pending 12/01/19 09:15 Assessment: 12/01/19 09:15 alcohol and opiate withdrawal Plan: librium and methadone regiments
--- NOTE | 2019-12-01 09:37 | PN ---
Teaching Attending Note Name of Resident: Marylou Ivey ATTENDING PHYSICIAN STATEMENT I saw and evaluated the patient. I reviewed the resident's note and discussed the case with the resident. I agree with the resident's findings and plan as documented. SUBJECTIVE: I agree with subjective findings of resident OBJECTIVE: I agree with objective findings of resident ASSESSMENT AND PLAN: I agree with detox plans as per resident.
[2019-12-01] MEDS: SERTRALINE HCL 50 MG TABLET (FP) PO SCH (10:28)
[2019-12-01] MEDS: PRENATAL VITAMINS W/ FOLIC ACID TABLET (FP) PO SCH (10:28)
--- NOTE | 2019-12-01 10:28 | EKG ---
Test Reason : Blood Pressure : / mmHG Vent. Rate : 075 BPM Atrial Rate : 075 BPM P-R Int : 156 ms QRS Dur : 094 ms QT Int : 402 ms P-R-T Axes : 071 070 054 degrees QTc Int : 448 ms NORMAL SINUS RHYTHM NORMAL ECG WHEN COMPARED WITH ECG OF 26-FEB-2017 18:44, NO SIGNIFICANT CHANGE WAS FOUND Confirmed by Moira Estrada ([id number]) on 12/01/2019 10:28:43 AM Referred By: Confirmed By:Moira Estrada
[2019-12-01] MEDS: NICOTINE 14 MG/24 HOURS TOPICAL PATCH TD SCH (10:29)
[2019-12-01] MEDS: METHOCARBAMOL 500 MG TABLET PO PRN (10:30)
[2019-12-01] MEDS: TOBRAMYCIN 0.3% OPHTH SOLN 5 ML BOTTLE OS SCH ×2 (17:12→22:35)
[2019-12-01] MEDS: THIAMINE HCL 100 MG TABLET (FP) PO SCH (22:33)
[2019-12-01] MEDS: MELATONIN 5 MG TABLETS PO SCH (22:34)
[2019-12-01] MEDS: QUEtiapine FUMARATE 100 MG TABLET (FP) PO SCH (22:34)
[2019-12-02] MEDS: hydrOXYzine PAMOATE 25 MG CAPSULE (FP) PO SCH ×5 (05:14→22:21)
[2019-12-02] MEDS: chlordiazePOXIDE HCL 10 MG CAPSULE PO SCH ×2 (05:14→17:46)
[2019-12-02] MEDS: TOBRAMYCIN 0.3% OPHTH SOLN 5 ML BOTTLE OS SCH ×3 (07:25→22:38)
[2019-12-02] MEDS: SERTRALINE HCL 50 MG TABLET (FP) PO SCH (10:15)
[2019-12-02] MEDS: PRENATAL VITAMINS W/ FOLIC ACID TABLET (FP) PO SCH (10:15)
[2019-12-02] MEDS: NICOTINE 14 MG/24 HOURS TOPICAL PATCH TD SCH (10:16)
--- NOTE | 2019-12-02 12:25 | PN ---
[facility] CIWA - CIWA Score Nausea/Vomitin-No Nausea/No Vomiting Muscle Tremors: 1-None Visible, but [place] Anxiety: 1-Mildly Anxious Agitation: 1-Slight > Activity Paroxysmal Sweats: No Perspiration Orientation: 0-Oriented Tacttile Disturbances: 0-None Auditory Disturbances: 0-None Visual Disturbances: 0-None Headache: 0-None Present CIWA-Ar Total Score: 3 S COWS - Scale Resting Pulse: 0= [place] 80 or Below Sweatin= No chills or Flushing Restless Observation: 0= Sits Still Pupil Size: 0= Normal to Room Light Bone or Joint Aches: 1= Mild Discomfort Runny Nose/ Eye Tearin= None GI Upset > 30mins: 0= None Tremor Observation of Outstretched Hands: 1= Tremor [place], Not Seen Yawning Observation: 0= None Anxiety or Irritability: 1=Feels Anxious/Irritable Goose Flesh Skin: 0=Smooth Skin COWS Score: 3 S Progress Note (SOAP) Subjective: 44 years old male admitted on 11/28/19 for alcohol and opiate withdrawal sx management treating with librium and methadone detox regiments feeling better today less tremor mild anxiety left lower eye lid itchy redness with mild swell strong recommend hand washing and avoid irritation encourage mr barbosa continue eye drop and seek ophthalmology specialist evaluation if needed Objective: 12/02/19 12:38 Vital Signs - 24 hr 12/01/19 12/01/19 12/01/19 12:50 16:45 20:39 Temperature 96.8 F L 97.8 F 97.3 F L Pulse Rate 65 64 67 Respiratory 18 18 18 Rate Blood Pressure 118/64 110/74 109/68 O2 Sat by Pulse 98 Oximetry (%) 12/02/19 12/02/19 06:08 08:44 Temperature 97.6 F 97.3 F L Pulse Rate 55 L 78 Respiratory 18 18 Rate Blood Pressure 103/62 115/66 O2 Sat by Pulse 96 Oximetry (%) Laboratory Tests 11/28/19 11/29/19 11/29/19 18:00 08:10 08:10 WBC 7.0 RBC 4.84 Hgb 14.2 Hct 42.1 MCV 86.9 MCH 29.3 MCHC 33.6 RDW 15.1 Plt Count 253 MPV 8.7 Sodium Potassium Chloride Carbon Dioxide Anion Gap BUN Creatinine Est GFR (CKD-EPI)AfAm Est GFR (CKD-EPI)NonAf Random Glucose Fasting Glucose Calcium Total Bilirubin AST ALT Alkaline Phosphatase Total Protein Albumin Syphilis Serology Non-reactive COVID-19 (DESMOND) Not detected 11/29/19 12/02/19 08:10 08:00 WBC RBC Hgb Hct MCV MCH MCHC RDW Plt Count MPV Sodium 142 Potassium 4.0 Chloride 111 H Carbon Dioxide 25 Anion Gap 6 L BUN 15.5 Creatinine 1.2 Est GFR (CKD-EPI)AfAm 83.54 Est GFR (CKD-EPI)NonAf 72.08 Random Glucose 122 H Fasting Glucose 93 Calcium 9.0 Total Bilirubin 0.2 AST 14 L ALT 32 Alkaline Phosphatase 83 Total Protein 6.7 Albumin 3.4 Syphilis Serology COVID-19 (DESMOND) 12/02/19 12:39 lab noted Assessment: 12/02/19 12:39 alcohol and opiate withdrawal Plan: librium and methadone regiments
[2019-12-02] MEDS: QUEtiapine FUMARATE 100 MG TABLET (FP) PO SCH (22:21)
[2019-12-02] MEDS: THIAMINE HCL 100 MG TABLET (FP) PO SCH (22:21)
[2019-12-02] MEDS: MELATONIN 5 MG TABLETS PO SCH (22:22)
[2019-12-03] MEDS ORDERED: chlordiazePOXIDE HCL 10 MG CAPSULE PO ONE (05:00)
[2019-12-03] MEDS: hydrOXYzine PAMOATE 25 MG CAPSULE (FP) PO SCH ×2 (06:05→10:34)
[2019-12-03] MEDS: TOBRAMYCIN 0.3% OPHTH SOLN 5 ML BOTTLE OS SCH (06:39)
[2019-12-03] MEDS ORDERED: MASKS NR ONE (08:39)
[2019-12-03 09:31] VITALS: BP 124/64; PULSE 94; TEMP 96.8
[2019-12-03] MEDS: PRENATAL VITAMINS W/ FOLIC ACID TABLET (FP) PO SCH (10:34)
[2019-12-03] MEDS: SERTRALINE HCL 50 MG TABLET (FP) PO SCH (10:34)
[2019-12-03] MEDS: NICOTINE 14 MG/24 HOURS TOPICAL PATCH TD SCH (10:35)
--- NOTE | 2019-12-03 12:22 | DS ---
[facility] Detox Discharge Summary Admission Date: 11/28/19 Discharge Date: 12/03/19 - History Present History: Alcohol Dependence, Opioid Dependence Additional Comments: 44 years old male admitted on 11/28/19 for alcohol and opiate withdrawal sx management treated with librium and methadone regiments seen by psychiatrist gretchen huerta and zolofbernardo mr barbosa has completed librium and methadone regiments and is tolerated well alert oriented x 3 speech clearly coherently ambulating steady gaits General Appearance: Yes: Within Normal Limits HEENTM: Yes: Normocephalic, Normal Voice, Photophobia. No: Nasal Congestion, Rhinorrhea Respiratory: Yes: Lungs Clear, Normal Breath Sounds, No Respiratory Distress, No Accessory Muscle Use Neck: Yes: Supple Breast: Yes: Breast Exam Deferred Cardiology: Yes: Regular Rhythm, Regular Rate, S1, S2 Abdominal: Yes: Normal Bowel Sounds, Non Tender, Flat, Soft Back: Yes: Normal Inspection Musculoskeletal: Yes: full range of Motion, Gait Steady Extremities: Yes: Normal Inspection, Normal Range of Motion, Tremors Neurological: Yes: Alert, Motor Strength 5/5, Normal Mood/Affect, Normal Response Integumentary: Yes: Normal Color, Dry, Warm Pertinent Past History: time for discharge 44 minutes transferred order set from detox to rehab - Physical Exam Results Vital Signs: Vital Signs Temperature 96.8 F L 12/03/19 08:42 Pulse Rate 94 H 12/03/19 08:42 Respiratory Rate 18 12/03/19 08:42 Blood Pressure 124/64 12/03/19 08:42 O2 Sat by Pulse Oximetry (%) 98 12/03/19 06:37 Pertinent Admission Physical Exam Findings: alcohol and opiate withdrawal Laboratory Tests 11/28/19 11/29/19 11/29/19 18:00 08:10 08:10 WBC 7.0 RBC 4.84 Hgb 14.2 Hct 42.1 MCV 86.9 MCH 29.3 MCHC 33.6 RDW 15.1 Plt Count 253 MPV 8.7 Sodium Potassium Chloride Carbon Dioxide Anion Gap BUN Creatinine Est GFR (CKD-EPI)AfAm Est GFR (CKD-EPI)NonAf Random Glucose Fasting Glucose Calcium Total Bilirubin AST ALT Alkaline Phosphatase Total Protein Albumin Syphilis Serology Non-reactive COVID-19 (DESMOND) Not detected 11/29/19 12/02/19 08:10 08:00 WBC RBC Hgb Hct MCV MCH MCHC RDW Plt Count MPV Sodium 142 Potassium 4.0 Chloride 111 H Carbon Dioxide 25 Anion Gap 6 L BUN 15.5 Creatinine 1.2 Est GFR (CKD-EPI)AfAm 83.54 Est GFR (CKD-EPI)NonAf 72.08 Random Glucose 122 H Fasting Glucose 93 Calcium 9.0 Total Bilirubin 0.2 AST 14 L ALT 32 Alkaline Phosphatase 83 Total Protein 6.7 Albumin 3.4 Syphilis Serology COVID-19 (DESMOND) lab noted - Treatment Hospital Course: Detox Protocol Followed, Detoxed Safely, Responded well, Discharged Condition Good, Rehab Referral Accepted Patient has Accepted a Rehab Referral to: [facility] - Medication Discharge Medications: Ambulatory Orders Quetiapine Fumarate [Seroquel -] 100 mg PO HS #30 tablet 06/22/19 Sertraline HCl [Zoloft] 100 mg PO DAILY #30 tablet 06/22/19 Tobramycin 0.3% Ophth Soln [Tobrex Ophthalmic Solution -] 1 drop OS Q8H 10 Days #1 drops 12/02/19 - Diagnosis (1) Alcohol dependence with uncomplicated withdrawal Status: Acute (2) Substance induced mood disorder Status: Suspected (3) GERD (gastroesophageal reflux disease) Status: Chronic Qualifiers: Esophagitis presence: without esophagitis Qualified Code(s): K21.9 - Gastro-esophageal reflux disease without esophagitis (4) Nicotine dependence Status: Acute Qualifiers: Nicotine product type: cigarettes Substance use status: in withdrawal Qualified Code(s): F17.213 - Nicotine dependence, cigarettes, with withdrawal (5) PPD positive Status: Resolved (6) Substance induced mood disorder Status: Suspected - AMA Did Patient Leave Against Medical Advice: No CIWA Score - CIWA Score Nausea/Vomitin-No Nausea/No Vomiting Muscle Tremors: 1-None Visible, but [place] Anxiety: 1-Mildly Anxious Agitation: 0-Normal Activity Paroxysmal Sweats: No Perspiration Orientation: 0-Oriented Tacttile Disturbances: 0-None Auditory Disturbances: 0-None Visual Disturbances: 0-None Headache: 0-None Present CIWA-Ar Total Score: 2 COWS (PN) - Opiate Withdrawal Resting Pulse: 0= [place] 80 or Below Sweatin= No chills or Flushing Restless Observation: 0= Sits Still Pupil Size: 0= Normal to Room Light Bone or Joint Aches: 0= None Runny Nose/ Eye Tearin= None GI Upset > 30mins: 0= None Tremor Observation of Outstretched Hands: 1= Tremor [place], Not Seen Yawning Observation: 0= None Anxiety or Irritability: 1=Feels Anxious/Irritable Goose Flesh Skin: 0=Smooth Skin COWS Score: 2
== END 2019-12-03 11:31 | disposition other institution (70) | DRG 773 ==
LOC: YASAS 13:46 → Y3N 17:42
PROVIDERS: ADMIT Allergy & Immunology; ATTEND Allergy & Immunology
PROC: HZ2ZZZZ Detoxification Services for Substance Abuse Treatment (ICD-10-PCS; principal; 2019-11-28)
DX: F11.23 Opioid dependence with withdrawal (principal); F10.230 Alcohol dependence with withdrawal, uncomplicated; F14.20 Cocaine dependence, uncomplicated; F17.213 Nicotine dependence, cigarettes, with withdrawal; F19.24 Other psychoactive substance dependence with psychoactive substance-induced mood disorder; K21.9 Gastro-esophageal reflux disease without esophagitis; R76.11 Nonspecific reaction to tuberculin skin test without active tuberculosis; R73.9 Hyperglycemia, unspecified; G47.00 Insomnia, unspecified; Z91.19 Patient's noncompliance with other medical treatment and regimen
CPT/HCPCS: 36415; 80053; 82947; 85027; 86780; 93005; 93010; U0003

== ENCOUNTER 2019-12-03 11:44 | Inpatient (IN) | payer OTHER ==
--- NOTE | 2019-12-03 12:16 | HP ---
[facility] Rehab Assess/Revision - Admission History Admitted to Rehab from: [facility] Date of Admission to Rehab: 12/03/19 - Findings Detox History & Physical reviewed: Yes Concur with findings: Yes Comments/Additional Findings: transferred from detox to rehab admission as per protocol Inpatient Rehab Admission - Rehab Decision to Admit Inpatient rehab admission?: Yes - Initial Determination Are CD services needed?: Yes Free of communicable disease: Yes Not in need of hospitalization: Yes - Rehab Admission Criteria Previous failed treatment: Yes Poor recovery environment: Yes Comorbidities: Yes Lacks judgement: Yes Patient is meeting Inpatient Rehab admission criteria:: Yes
[2019-12-03 12:33] VITALS: BP 120/63; PULSE 72; TEMP 97.5
[2019-12-03] MEDS ORDERED: hydrOXYzine PAMOATE 25 MG CAPSULE (FP) PO PRN (12:35)
[2019-12-03] MEDS ORDERED: NICOTINE POLACRILEX 2 MG GUM BC PRN (12:35)
[2019-12-03] MEDS ORDERED: guaiFENesin 200 MG/10 ML 10 ML UNIT-DOSE CUPS PO PRN (12:35)
[2019-12-03] MEDS ORDERED: MAGNESIUM CITRATE 300 ML BOTTLE PO PRN (12:35)
[2019-12-03] MEDS ORDERED: ACETAMINOPHEN 325 MG TABLET (FP) PO PRN (12:35)
[2019-12-03] MEDS ORDERED: MAGNESIUM HYDROX 2400MG/30ML ORAL SUSPENSION 30 ML CUP PO PRN (12:35)
[2019-12-03] MEDS ORDERED: IBUPROFEN 400 MG TABLET (FP) PO PRN (12:35)
[2019-12-03] MEDS ORDERED: MAG HYDROX/AL HYDROX/SIMETH 30 ML UNIT-DOSE CUP PO PRN (12:35)
[2019-12-03] MEDS ORDERED: P-EPHED 60MG/TRIPROLIDI 2.5MG TABLET PO PRN (12:35)
[2019-12-03] MEDS ORDERED: LOPERAMIDE HCL 2 MG CAPSULE PO PRN (12:35)
[2019-12-03] MEDS ORDERED: TOBRAMYCIN 0.3% OPHTH SOLN 5 ML BOTTLE OD SCH (14:00)
--- NOTE | 2019-12-03 16:00 | PN ---
[facility] Progress Note Note: Patient decided to leave Rehab. States he is not ready for rehab and wants to go home to his family. Vital Signs Period Temp Pulse Resp BP Sys/Jean-Baptiste Pulse Ox Last 24 Hr 97.5 F 72 16 120/63 98 P/E: general: no apparent distress HEENMT: left eye: conjunctiva reddened, tearing, lower lid slightly swollen. Neck: supple MSK: full weight bearing Neuro: A +Ox 4, Medically stable for discharge. The patient does not have any plans for aftercare. Patient met with the counselor.
[2019-12-03] MEDS ORDERED: QUEtiapine FUMARATE 100 MG TABLET (FP) PO SCH (22:00)
[2019-12-03] MEDS ORDERED: MELATONIN 5 MG TABLETS PO SCH (22:00)
[2019-12-03] MEDS ORDERED: THIAMINE HCL 100 MG TABLET (FP) PO SCH (22:00)
[2019-12-04] MEDS ORDERED: SERTRALINE HCL 50 MG TABLET (FP) PO SCH (10:00)
[2019-12-04] MEDS ORDERED: PRENATAL VITAMINS W/ FOLIC ACID TABLET (FP) PO SCH (10:00)
[2019-12-04] MEDS ORDERED: NICOTINE 14 MG/24 HOURS TOPICAL PATCH TD SCH (10:00)
== END 2019-12-03 15:51 | disposition left against medical advice (07) | DRG 770 ==
LOC: YASAS 11:44 → Y3W 11:46
PROVIDERS: ADMIT Allergy & Immunology; ATTEND Allergy & Immunology
PROC: HZ42ZZZ Group Counseling for Substance Abuse Treatment, Cognitive-Behavioral (ICD-10-PCS; principal; 2019-12-03)
DX: F11.20 Opioid dependence, uncomplicated (principal); F10.20 Alcohol dependence, uncomplicated; F14.20 Cocaine dependence, uncomplicated; F17.210 Nicotine dependence, cigarettes, uncomplicated; K21.9 Gastro-esophageal reflux disease without esophagitis

== ENCOUNTER 2020-02-12 13:37 | Inpatient (IN) | payer OTHER ==
--- OUTSIDE RECORDS SUMMARY | 2020-02-12 13:41 | XMS ---
:1975 Author Organization [facility] Support Name Relationship Address Phone LUIS GUTIÉRREZ AUNT [address] [place] [id number] UE Unavailable Unavailable Unavailable EDDI SANCHEZ SELF / SAME PATIENT [address] [phone] [place] [address] LUIS GUTIÉRREZ Other [address] [place] [address] Re-disclosure Warning The records that you are about to access may contain information from federally- assisted alcohol or drug abuse programs. If such information is present, then the following federally mandated warning applies: This information has been disclosed to you from records protected by federal confidentiality rules (42 CFR part 2). The federal rules prohibit you from making any further disclosure of this information unless further disclosure is expressly permitted by the written consent of the person to whom it pertains or as otherwise permitted by 42 CFR part 2. A general authorization for the release of medical or other information is NOT sufficient for this purpose. The Federal rules restrict any use of the information to criminally investigate or prosecute any alcohol or drug abuse patient.The records that you are about to access may contain highly sensitive health information, the redisclosure of which is protected by Article 27-F of the [facility] Public Health law. If you continue you may haveaccess to information: Regarding HIV / AIDS; Provided by facilities licensed or operated by the [facility] Office of Mental Health; or Provided by the [facility] Office for People With Developmental Disabilities. If such information is present, then the following [facility] mandated warning applies: This information has been disclosed to you from confidential records which are protected by state law. State law prohibits you from making any further disclosure of this information without the specific written consent of the person to whom it pertains, or as otherwise permitted by law. Any unauthorized further disclosure in violation of state law may result in a fine or senior care sentence or both. A general authorization for the release of medical or other information is NOT sufficient authorization for further disclosure. Insurance Providers Payer name Policy type Policy ID Covered Covered constitution party's Policy P robinson / Coverage constitution party ID relationship to Sanchez Inf ormation type sanchez [employer] [id number] 2004 [id number] STR[employer]-AFF [employer] [id number] SP [id number] [employer] [id number] SP [id number] [employer] [id number] SP [id number] [employer] Results ID Date Data Source [id number] 11/28/2019 06:00:00 PM EDT [facility] Name Value Range Interpretation Description Data Sup porting Code Source(s) Document(s ) SARS [facility] coronavirus 2 RNA This lab was ordered by [facility] [address] [facility] and reported by [facility]. Procedure
--- NOTE | 2020-02-12 14:00 | BHS.RME ---
2019 N Coronavirus Screen - COVID-19 Screening Questions Dx of COVID-19 or had a positive test in the last 4 weeks?: No Contact with known/suspected COVID patient in last 14 days?: No Any of these symptoms or contact with someone who has?: None Traveled domestically/internationally in the last 14 days?: No Screen score: 0 Screen result: Further Evaluation Substance Use & Tx History - Substance Use History Heroin Substance amount: $30 Frequency of use: Daily Substance route: Inhalation (ex: sniffing or snorting) Date of Last Use: 02/12/20 (started age 41) Cocaine- Powder Substance amount: $20 Frequency of use: Daily Substance route: Inhalation (ex: sniffing or snorting) Date of Last Use: 02/12/20 (started age 41) Marijuana/Hashish Substance amount: 1 joint Frequency of use: Daily Substance route: Smoking Date of Last Use: 02/05/20 (started age 13) Nicotine Substance amount: 10 ciggs Frequency of use: Daily Substance route: Smoking Date of Last Use: 02/12/20 (started age 13) Physical/Psych/Mental Status - Behavior General Behavior: Increased activity (restlessness, agitation) Eye Contact: Normal - Cooperativeness Cooperativeness: Cooperative - Thinking Thought Processes: Tight, Logical, Goal Directed - Physical Health Problems Is patient presently having any pain?: No Does patient presently have any injuries (include location): No Does patient currently have a fever: No Is patient : No COWS - Scale Resting Pulse: 0= [place] 80 or Below Sweatin= No chills or Flushing Restless Observation: 0= Sits Still Pupil Size: 0= Normal to Room Light Bone or Joint Aches: 0= None Runny Nose/ Eye Tearin= None GI Upset > 30mins: 0= None Tremor Observation: 0= None Yawning Observation: 0= None Anxiety or Irritability: 0= None Goose Flesh Skin: 0=Smooth Skin COWS Score: 0
--- NOTE | 2020-02-12 16:46 | HP ---
CIWA Score - Admission Criteria [facility]ASAS Guidelines: Admission for Medically Managed Detox: Requires at least one of the followin. CIWA greater than 12 2. Seizures within the past 24 hours 3. Delirium tremens within the past 24 hours 4. Hallucinations within the past 24 hours 5. Acute intervention needed for co occurring medical disorder 6. Acute intervention needed for co occurring psychiatric disorder 7. Severe withdrawal that cannot be handled at a lower level of care (continued vomiting, continued diarrhea, abnormal vital signs) requiring intravenous medication and/or fluids 8. Admitting History and Physical - Smoking History Smoking history: Current every day smoker Have you smoked in the past 12 months: Yes Aproximately how many cigarettes per day: 10 - Alcohol/Substance Use Hx Alcohol Use: Yes Admission ROS [facility] - [facility] Chief Complaint: Seeking admission to Rehab. Allergies/Adverse Reactions: Allergies Allergy/AdvReac Type Severity Reaction Status Date / Time Penicillins AdvReac Severe Swelling Verified 12/03/19 11:47 History of Present Illness: 44 years old male with history of heroin, alcohol and cocaine dependence is seeking admission to Rehab. His last admission was for the period 11/28/2019- 12/03/2019 and he reports medical history of PPD positive, GERD, psych. history of depression, insomnia and he denies suicidal ideation at this time. He recently lost his job, lives alone and denies suicidal ideation at this time. Exam Limitations: No Limitations - Ebola screening Have you traveled outside of the country in the last 21 days: No Have you had contact with anyone from an Ebola affected area: No Have you been sick,other than usual withdrawal symptoms: No Do you have a fever: No - Review of Systems Constitutional: No Symptoms Reported EENT: reports: No Symptoms Reported Respiratory: reports: No Symptoms reported Cardiac: reports: No Symptoms Reported GI: reports: No Symptoms Reported : reports: No Symptoms Reported Musculoskeletal: reports: No Symptoms Reported Integumentary: reports: No Symptoms Reported Neuro: reports: No Symptoms reported Endocrine: reports: No Symptoms Reported Hematology: reports: No Symptoms Reported Psychiatric: reports: Mood/Affect Appropiate, Orientated x3 Other Systems: Reviewed and Negative Patient History - Patient Medical History Hx Anemia: No Hx Asthma: No Hx Chronic Obstructive Pulmonary Disease (COPD): No Hx Cancer: No Hx Cardiac Disorders: No Hx Congestive Heart Failure: No Hx Hypertension: No Hx Hypercholesterolemia: No Hx Pacemaker: No HX Cerebrovascular Accident: No Hx Seizures: No Hx Dementia: No Hx Diabetes: No Hx Gastrointestinal Disorders: Yes (Not on medication) Hx Liver Disease: No Hx Genitourinary Disorders: No Hx Sexually Transmitted Disorders: No Hx Renal Disease (ESRD): No Hx Thyroid Disease: No Hx Human Immunodeficiency Virus (HIV): No (Negative 2019) Hx Hepatitis C: No Hx Depression: Yes (Not on medication) Hx Suicide Attempt: No Hx Bipolar Disorder: No Hx Schizophrenia: No - Patient Surgical History Past Surgical History: Yes Hx Neurologic Surgery: No Hx Cataract Extraction: No Hx Cardiac Surgery: No Hx Lung Surgery: No Hx Breast Surgery: No Hx Breast Biopsy: No Hx Abdominal Surgery: No Hx Appendectomy: No Hx Cholecystectomy: No Hx Genitourinary Surgery: No Hx Section: No Hx Orthopedic Surgery: Yes (right ankle fracture repair 2017) Anesthesia Reaction: No - PPD History Previous Implant?: Yes (PPD POSITIVE- Treated with INH and B12) Documented Results: Positive w/proof Implanted On Prior [facility] Admission?: No Date: 04/30/18 Results: Neg CXR 04/2019 PPD to be Administered?: No - Reproductive History Patient is a Female of Child Bearing Age (11 -55 yrs old): No (Male) - Smoking Cessation Smoking history: Current every day smoker Have you smoked in the past 12 months: Yes Aproximately how many cigarettes per day: 10 Hx Chewing Tobacco Use: No Initiated information on smoking cessation: Yes 'Breaking Loose' booklet given: 02/12/20 - Substance & Tx. History Hx Alcohol Use: Yes Hx Substance Use: Yes Substance Use Type: Alcohol, Cocaine, Heroin Hx Substance Use Treatment: Yes ([facility]) - Substances abused Alcohol Substance route: Oral Frequency: Daily Amount used: 1/2 pint Vodka Age of first use: 16 Date of last use: 02/11/20 Heroin Substance route: Inhalation Frequency: 3-6 times per week Amount used: 2 bags Age of first use: 22 Date of last use: 02/10/20 Admission Physical Exam S - Physical General Appearance: Yes: Within Normal Limits HEENTM: Yes: Within Normal Limits Respiratory: Yes: Normal Breath Sounds, No Respiratory Distress Neck: Yes: Within Normal Limits Breast: Yes: Breast Exam Deferred Cardiology: Yes: Regular Rhythm, Regular Rate Abdominal: Yes: Normal Bowel Sounds Genitourinary: Yes: Within Normal Limits Back: Yes: Normal Inspection Musculoskeletal: Yes: Within Normal Limits Extremities: Yes: Within Normal Limits Neurological: Yes: Within Normal Limits Integumentary: Yes: Within Normal Limits Lymphatic: Yes: Within Normal Limits - Diagnostic (1) Opioid dependence, uncomplicated Current Visit: Yes Status: Chronic (2) Alcohol dependence, uncomplicated Current Visit: Yes Status: Chronic (3) Insomnia Current Visit: Yes Status: Chronic Qualifiers: Insomnia type: unspecified Qualified Code(s): G47.00 - Insomnia, unspecified (4) Nicotine dependence Current Visit: Yes Status: Chronic Qualifiers: Nicotine product type: cigarettes Substance use status: uncomplicated Qualified Code(s): F17.210 - Nicotine dependence, cigarettes, uncomplicated (5) Cocaine dependence Current Visit: Yes Status: Chronic Qualifiers: Substance use status: uncomplicated Qualified Code(s): F14.20 - Cocaine dependence, uncomplicated (6) Depression Current Visit: Yes Status: Chronic Qualifiers: Depression Type: major depressive disorder Major depression episode severity: unspecified (7) GERD (gastroesophageal reflux disease) Current Visit: Yes Status: Chronic Qualifiers: Esophagitis presence: without esophagitis Qualified Code(s): K21.9 - Gastro-esophageal reflux disease without esophagitis (8) PPD positive Current Visit: Yes Status: Chronic Cleared for Admission [facility] - Detox or Rehab [facility] Level of Care: Observation Bed Claeared for Rehab Admission: Yes Breathalyzer - Breathalyzer Breathalyzer: 0 Urine Drug Screen - Test Device Lot number: [id number] Expiration date: 11/27/20 - Control Is test valid?: Yes - Results Drug screen NEGATIVE: No Urine drug screen results: CHYNA-Cocaine, BZO-Benzodiazepines Inpatient Rehab Admission - Rehab Decision to Admit Inpatient rehab admission?: Yes - Initial Determination Are CD services needed?: No Free of communicable disease: Yes Not in need of hospitalization: Yes - Rehab Admission Criteria Previous failed treatment: Yes Poor recovery environment: Yes Comorbidities: Yes Lacks judgement: No Patient is meeting Inpatient Rehab admission criteria:: Yes
[2020-02-12] MEDS ORDERED: MAGNESIUM HYDROX 2400MG/30ML ORAL SUSPENSION 30 ML CUP PO PRN (16:55)
[2020-02-12] MEDS ORDERED: IBUPROFEN 400 MG TABLET (FP) PO PRN (16:55)
[2020-02-12] MEDS ORDERED: MAGNESIUM CITRATE 300 ML BOTTLE PO PRN (16:55)
[2020-02-12] MEDS ORDERED: LOPERAMIDE HCL 2 MG CAPSULE PO PRN (16:55)
[2020-02-12] MEDS ORDERED: P-EPHED 60MG/TRIPROLIDI 2.5MG TABLET PO PRN (16:55)
[2020-02-12] MEDS ORDERED: NICOTINE POLACRILEX 2 MG GUM BC PRN (16:55)
[2020-02-12] MEDS ORDERED: MAG HYDROX/AL HYDROX/SIMETH 30 ML UNIT-DOSE CUP PO PRN (16:55)
[2020-02-12] MEDS ORDERED: guaiFENesin 200 MG/10 ML 10 ML UNIT-DOSE CUPS PO PRN (16:55)
[2020-02-12] MEDS ORDERED: ACETAMINOPHEN 325 MG TABLET (FP) PO PRN (16:55)
[2020-02-12 17:08] VITALS: BMI 28.3
--- OUTSIDE RECORDS SUMMARY | 2020-02-12 18:27 | XMS ---
:1975 Author Organization [facility] Support Name Relationship Address Phone LUIS GUTIÉRREZ AUNT [address] [place] [phone] UE Unavailable Unavailable Unavailable EDDI SANCHEZ SELF / SAME PATIENT [address] [place] [phone] LUIS GUTIÉRREZ Other [address] [place] [address] Re-disclosure Warning The records that you are [...] is protected by Article 27-F of the [facility] Public Health law. If you continue you may haveaccess to information: Regarding HIV / AIDS; Provided by facilities licensed or operated by the [facility] Office of Mental Health; or Provided by the [facility] Office for People With Developmental Disabilities. If such information is present, then the following [facility] mandated warning applies: This information has [...] law may result in a fine or retirement sentence or both. A general authorization for the release of medical or other information is NOT sufficient authorization for further disclosure. Insurance Providers Payer name Policy type Policy ID Covered Covered libertarian's Policy P robinson / Coverage libertarian ID relationship to Sanchez Inf ormation type sanchez [employer] [id number] 2004 [id number]-AFF BEACON [id number] SP [id number] [employer]ACON [id number] SP [id number] [employer] [id number] SP [id number] [employer] Results ID Date Data Source [id number] 11/28/2019 06:00:00 PM EDT [facility] Name Value Range Interpretation Description Data Sup porting Code Source(s) Document(s ) SARS [facility] coronavirus 2 RNA This lab was ordered by [facility] [place] [address] Bill Inter and reported by [facility]. Procedure
[2020-02-12] MEDS: MELATONIN 5 MG TABLETS PO SCH (21:42)
[2020-02-12] MEDS: THIAMINE HCL 100 MG TABLET (FP) PO SCH (21:42)
[2020-02-13] MEDS: NICOTINE 14 MG/24 HOURS TOPICAL PATCH TD SCH (10:53)
[2020-02-13] MEDS: PRENATAL VITAMINS W/ FOLIC ACID TABLET (FP) PO SCH (10:53)
--- NOTE | 2020-02-13 13:08 | CONSULT ---
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 Refer to addiction counselor's summary for further information Medical History: Significant for GERD, history of treatment for +PPD and of orthosurgery for fracture of right ankle in 2016. Smokes 10 cigarettes daily Psychiatric History: Patient is known for multiple previous admissions to this facility. Reports that his first psychiatric treatment occured in February 2019 when he was admitted to [facility], diagnosed with MDD and prescribed Seroquel and Zoloft. Reports that after discharge he was referred to outpatient mental health of the same institution where he is still seeing a psychiatrist. He is still prescribed Zoloft 100 mg/day and Seroquel 100 mg/hs. Reportedly he has a previous distant suicidal attempt via overdose on medication. At present, he is very irritable, aggravated with keno writer / runner's questioning and reports sleeping poorly Physical/Sexual Abuse/Trauma History: Denies history of abuse as a child or DV relationship as an adult Mental Status Exam - Mental Status Exam Alert and Oriented to: Time, Place, Person Cognitive Function: Fair Patient Appearance: Well Groomed Mood: Hostile, Irritable Affect: Appropriate Patient Behavior: Uncooperative Speech Pattern: Clear Voice Loudness: Normal Thought Process: Intact, Goal Oriented Thought Disorder: Not Present Hallucinations: Denies Suicidal Ideation: Denies Homicidal Ideation: Denies Insight/Judgement: Poor Sleep: Poorly Appetite: Good Muscle strength/Tone: Normal Gait/Station: Normal Psychiatric Findings - Problem List ([place] 1, 2,3) (1) Depressive disorder Current Visit: No Status: Chronic (2) MDD (major depressive disorder) Current Visit: No Status: Ruled-out (3) Substance induced mood disorder Current Visit: No Status: Acute (4) Substance-induced sleep disorder Current Visit: Yes Status: Acute (5) Alcohol dependence Current Visit: Yes Status: Acute (6) Opioid dependence Current Visit: Yes Status: Acute (7) Cocaine dependence Current Visit: Yes Status: Chronic Qualifiers: Substance use status: uncomplicated Qualified Code(s): F14.20 - Cocaine dependence, uncomplicated (8) Nicotine dependence Current Visit: Yes Status: Chronic Qualifiers: Nicotine product type: cigarettes Substance use status: uncomplicated Qualified Code(s): F17.210 - Nicotine dependence, cigarettes, uncomplicated (9) GERD (gastroesophageal reflux disease) Current Visit: Yes Status: Chronic Qualifiers: Esophagitis presence: without esophagitis Qualified Code(s): K21.9 - Gastro-esophageal reflux disease without esophagitis (10) PPD positive Current Visit: Yes Status: Resolved - Initial Treatment Plan Initial Treatment Plan: 1) Continue Zoloft 100 mg po daily and Seroquel 100 mg po HS. 2) Continue inpatient rehabilitation
[2020-02-13 14:36] LABS: HEMATOCRIT 41.9 % (35.4-49); HEMOGLOBIN 13.8 GM/dL (11.7-16.9); MCH 29.1 pg (25.7-33.7); MCHC 32.9 g/dl (32.0-35.9); MEAN CELL VOLUME 88.4 fl (80-96); MEAN PLT VOLUME 8.6 fl (7.5-11.1); PLATELET COUNT 239 K/MM3 (134-434); RBC 4.75 M/mm3 (4.00-5.60); RDW 14.6 % (11.9-15.9); WHITE BLOOD COUNT 6.5 K/mm3 (4.0-10.0)
[2020-02-13 14:47] LABS: ALBUMIN 3.4 g/dl (3.4-5.0); BILIRUBIN,TOTAL 0.7 mg/dL (0.2-1); BLOOD UREA NITROGEN 11.4 mg/dL (7-18); CALCIUM 8.9 mg/dL (8.5-10.1); CREATININE 1.1 mg/dL (0.55-1.3); POTASSIUM 4.3 mmol/L (3.5-5.1); TOT PROT 6.5 g/dl (6.4-8.2)
[2020-02-13] MEDS: SERTRALINE HCL 50 MG TABLET (FP) PO SCH (15:12)
[2020-02-13 17:04] LABS: SICKLE CELL SCREEN NEGATIVE (NEGATIVE)
[2020-02-13] MEDS ORDERED: QUEtiapine FUMARATE 100 MG TABLET (FP) PO SCH (22:00)
[2020-02-13] MEDS: MELATONIN 5 MG TABLETS PO SCH (22:13)
[2020-02-13] MEDS: THIAMINE HCL 100 MG TABLET (FP) PO SCH (22:13)
[2020-02-14 08:17] VITALS: BP 122/77; PULSE 82; TEMP 97.5
[2020-02-14] MEDS: NICOTINE 14 MG/24 HOURS TOPICAL PATCH TD SCH (10:20)
[2020-02-14] MEDS: PRENATAL VITAMINS W/ FOLIC ACID TABLET (FP) PO SCH (10:21)
[2020-02-14] MEDS: SERTRALINE HCL 50 MG TABLET (FP) PO SCH (10:22)
[2020-02-14] MEDS ORDERED: hydrOXYzine PAMOATE 50 MG CAPSULE (FP) PO PRN (10:26)
--- NOTE | 2020-02-14 10:52 | DS ---
[facility] Rehab Discharge Summary - [facility] Rehab Discharge Summary Admission Date: 02/12/20 Discharge Date: 02/14/20 - History Present History: Alcohol dependence, Opioid dependence - Discharge Physical Exam Vital Signs: Vital Signs Temperature 97.5 F L 02/14/20 06:42 Pulse Rate 82 02/14/20 06:42 Respiratory Rate 18 02/14/20 06:42 Blood Pressure 122/77 02/14/20 06:42 O2 Sat by Pulse Oximetry (%) 96 02/14/20 06:42 Pertinent Admission Physical Exam Findings: Laboratory Last Values WBC 6.5 K/mm3 (4.0-10.0) 02/12/20 08:30 RBC 4.75 M/mm3 (4.00-5.60) 02/12/20 08:30 Hgb 13.8 GM/dL (11.7-16.9) 02/12/20 08:30 Hct 41.9 % (35.4-49) 02/12/20 08:30 MCV 88.4 fl (80-96) 02/12/20 08:30 MCH 29.1 pg (25.7-33.7) 02/12/20 08:30 MCHC 32.9 g/dl (32.0-35.9) 02/12/20 08:30 RDW 14.6 % (11.9-15.9) 02/12/20 08:30 Plt Count 239 K/MM3 (134-434) 02/12/20 08:30 MPV 8.6 fl (7.5-11.1) 02/12/20 08:30 Sickle Cell Screen Negative (NEGATIVE) 02/12/20 08:30 Sodium 140 mmol/L (136-145) 02/12/20 08:30 Potassium 4.3 mmol/L (3.5-5.1) 02/12/20 08:30 Chloride 106 mmol/L (98-107) 02/12/20 08:30 Carbon Dioxide 28 mmol/L (21-32) 02/12/20 08:30 Anion Gap 6 MMOL/L (8-16) L 02/12/20 08:30 BUN 11.4 mg/dL (7-18) 02/12/20 08:30 Creatinine 1.1 mg/dL (0.55-1.3) 02/12/20 08:30 Est GFR (CKD-EPI)AfAm 92.81 02/12/20 08:30 Est GFR (CKD-EPI)NonAf 80.08 02/12/20 08:30 Random Glucose 172 mg/dL (74-106) H 02/12/20 08:30 Calcium 8.9 mg/dL (8.5-10.1) 02/12/20 08:30 Total Bilirubin 0.7 mg/dL (0.2-1) 02/12/20 08:30 AST 11 U/L (15-37) L 02/12/20 08:30 ALT 24 U/L (13-61) 02/12/20 08:30 Alkaline Phosphatase 78 U/L (45-117) 02/12/20 08:30 Total Protein 6.5 g/dl (6.4-8.2) 02/12/20 08:30 Albumin 3.4 g/dl (3.4-5.0) 02/12/20 08:30 Syphilis Serology Non-reactive (NONREACTIVE) 02/12/20 08:30 SARS-CoV-2 (PCR) Negative (Negative) 02/12/20 14:10 - Medication Discharge Medications: Ambulatory Orders Quetiapine Fumarate [Seroquel -] 100 mg PO HS #30 tablet 06/22/19 Sertraline HCl [Zoloft] 100 mg PO DAILY 02/12/20 - Medication-Assisted Treatment (MAT) Medication-Assisted Treatment (MAT): No - Discharge Instructions Diet, activity, other medical instructions: Diet: Activity: Other medical instructions: - Diagnosis (1) Alcohol dependence Current Visit: Yes Status: Chronic Qualifiers: Substance use status: uncomplicated Qualified Code(s): F10.20 - Alcohol dependence, uncomplicated (2) Opioid dependence Current Visit: Yes Status: Chronic Qualifiers: Substance use status: uncomplicated Qualified Code(s): F11.20 - Opioid dependence, uncomplicated (3) Depression Current Visit: Yes Status: Chronic Qualifiers: Depression Type: major depressive disorder Major depression episode severity: unspecified (4) GERD (gastroesophageal reflux disease) Current Visit: Yes Status: Chronic Qualifiers: Esophagitis presence: without esophagitis Qualified Code(s): K21.9 - Gastro-esophageal reflux disease without esophagitis (5) Insomnia Current Visit: Yes Status: Chronic Qualifiers: Insomnia type: unspecified Qualified Code(s): G47.00 - Insomnia, unspecified (6) Nicotine dependence Current Visit: Yes Status: Chronic Qualifiers: Nicotine product type: cigarettes Substance use status: uncomplicated Qualified Code(s): F17.210 - Nicotine dependence, cigarettes, uncomplicated - AMA Did Patient Leave Against Medical Advice: Yes Additional Comments: Patient has decided to leave because after 2 days in rehab, he is requesting to go to detox due to withdrawal symptoms which he has been told will not be done. Patient assured by functional tester typewriters his symptoms can be managed while in rehab. Patient became angry and decided to leave as he wasn't going to be given methadone. All other discussion abandoned as he stormed out of his room.
--- NOTE | 2020-02-14 10:56 | PN ---
[facility] Progress Note Note: Patient referred for withdrawal symptoms while in rehab. He was admitted 2 days ago, he is requesting to go to detox due to withdrawal symptoms which he has been told will not be done. Patient assured by comic book writer his symptoms can be managed while in rehab, vistaril 50mg every 6 hrs already ordered but he refuses to discuss other symptoms to guide provider what other medication to order. Patient became angry and decided to leave as he wasn't going to be given methadone. All other discussion abandoned as he stormed out of his room.
== END 2020-02-14 10:40 | disposition left against medical advice (07) | DRG 770 ==
LOC: YASAS 13:37 → Y5N 18:22
PROVIDERS: ADMIT Allergy & Immunology; ATTEND Allergy & Immunology
PROC: HZ42ZZZ Group Counseling for Substance Abuse Treatment, Cognitive-Behavioral (ICD-10-PCS; principal; 2020-02-12)
DX: F10.20 Alcohol dependence, uncomplicated (principal); F11.20 Opioid dependence, uncomplicated; F14.20 Cocaine dependence, uncomplicated; F12.20 Cannabis dependence, uncomplicated; F17.210 Nicotine dependence, cigarettes, uncomplicated; F19.282 Other psychoactive substance dependence with psychoactive substance-induced sleep disorder; F19.24 Other psychoactive substance dependence with psychoactive substance-induced mood disorder; F32.9 Major depressive disorder, single episode, unspecified; G47.00 Insomnia, unspecified; K21.9 Gastro-esophageal reflux disease without esophagitis; R76.11 Nonspecific reaction to tuberculin skin test without active tuberculosis; Z87.81 Personal history of (healed) traumatic fracture; Z88.0 Allergy status to penicillin
CPT/HCPCS: 36415; 80053; 85027; 85660; 86780; C9803; U0003